=== PATIENT | female | born 1950 | race African-American/Black ===

== ENCOUNTER 2025-04-05 14:07 | Inpatient (IN) | payer MEDICARE, OTHER ==
[~2025-04-05] VITALS: Ht 154.9 cm; Wt 87.4 kg
[2025-04-05 14:28] VITALS: BP 115/57
[2025-04-05] MEDS ORDERED: ALUM-MAG HYDROX30 M1 PT (14:50)
[2025-04-05] MEDS ORDERED: ELIQUIS5 M2 PT (14:51)
[2025-04-05] MEDS ORDERED: BISA10S PR (14:51)
[2025-04-05] MEDS ORDERED: Fleet Enema132 ML PR (14:54)
[2025-04-05] MEDS ORDERED: Acetaminophen650 M1 PT (14:55)
[2025-04-05] MEDS ORDERED: [UNRECOGNIZED DRUG - OTHER] (14:58)
[2025-04-05] MEDS ORDERED: LEVE500 PT (14:58)
[2025-04-05] MEDS ORDERED: PRENATAL TABLE1 EAC2 PT (14:59)
[2025-04-05] MEDS ORDERED: HUMALOG KW100 UNIT/1 SC (15:03)
[2025-04-05] MEDS ORDERED: Metoclopramide HCL Soln 10 MG/10 ML UDC PT SCH (18:00)
[2025-04-05] MEDS ORDERED: Insulin Human Lispro 100 Units/ML 3ML Syringe SC SCH (18:00)
--- NOTE | 2025-04-05 18:46 | NUR ---
DAY SUMMARY DIRECT ADMIT THIS SHIFT, DAMION XFER'D TO BED, DENIES PAIN, A&OX3, ABLE TO ANSWER YES/NO QUESTIONS, SLOW TO RESPOND, REPOS Q2, NPO, WILL CONT TO MONITOR UNTIL REPORT GIVEN TO ONCOMING NURSE.
[2025-04-05] MEDS ORDERED: D5W-LR 1,000 ML IV SCH (19:00)
[2025-04-05 20:13] VITALS: BP 133/62
[2025-04-06 00:15] VITALS: BP 144/66
--- NOTE | 2025-04-06 05:54 | NUR ---
SHIFT SUMMARY: PT AOX3-4 ABLE TO SPEAK IN SMALL WORDS AND PHRASES. AWAKES TO VERBAL STIMULI. NO MEDS THROUGH G TUBE UNTIL REPLACEMENT PER DOCTOR ORDER. PT TOELRATING IV MEDICATIONS WELL. PT DENIES PAIN OR DISCOMFORT. SLEPT WELL THROUGH THE NIGHT TOLERATING TURNS. PT DID DIP DOWN TO A PULSE OF 40 3-4 TIMES AT NIGHT BUT NOTHING SUSTAINED ANY LONGER THAN A MINUTE. NO ACUTE OVERNIGHT EVENTS. PT IN BED RESTING, BED IN LOWEST POSITION, CALL LIGHT IN REACH. CONTINUING CARE.
[2025-04-06 06:11] VITALS: BP 146/63
[2025-04-06 06:17] LABS: BASOPHILS ABSOLUTE AUTO 0.02 K/mm3 (0.00-0.23); BASOPHILS PERCENT AUTO 0 % (0-2); EOSINOPHILS ABSOLUTE AUTO 0.13 K/mm3 (0.00-0.68); EOSINOPHILS PERCENT AUTO 2 % (0-6); Hematocrit 29.2 % (33.0-51.0); Hemoglobin 9.2 g/dL (11.5-16.0); IMMATURE GRAN ABSOLUTE AUTO 0.03 K/mm3 (0.00-0.10); IMMATURE GRAN PERCENT AUTO 0 % (0-1); LYMPHOCYTES ABSOLUTE AUTO 0.92 K/mm3 (0.84-5.20); LYMPHOCYTES PERCENT AUTO 13 % (21-46); MONOCYTES ABSOLUTE AUTO 0.74 K/mm3 (0.16-1.47); MONOCYTES PERCENT AUTO 10 % (4-13); Mean Corpuscular HGB Conc 31.5 g/dL (31.5-36.5); Mean Corpuscular Volume 80 fL (80-100); NEUTROPHILS ABSOLUTE AUTO 5.26 K/mm3 (1.96-9.15); NEUTROPHILS PERCENT AUTO 74 % (41-73); NRBC ABSOLUTE 0.00 K/mm3 (0.00-0.02); NRBC Auto 0.0 /100 WBC (0.0-0.2); Platelet Count 142 K/mm3 (150-400); RDW Coefficient Variation 19.8 % (11.7-14.2); RDW Standard Deviation 57.2 fL (35.1-46.3)
[2025-04-06 07:03] LABS: Alanine Aminotransfer (ALT/SGP 12 U/L (12-78); Albumin, Blood 2.1 g/dL (3.4-5.0); Albumin/Globulin Ratio 0.5 (0.8-1.8); Anion Gap 7 mmol/L (3-11); Aspartate Aminotrans (AST/SGOT 17 U/L (12-37); Bilirubin, Total 0.4 mg/dL (0.1-1.0); Blood Urea Nitrogen <1 mg/dL (8-24); CO2, Blood 29 mmol/L (21-32); Calcium, Blood 8.0 mg/dL (8.5-10.1); Chloride, Blood 109 mmol/L (98-108); Creatinine, Blood 0.33 mg/dL (0.40-1.00); Globulin, Blood 4.4 g/dL (2.2-4.0); Glucose, Blood 126 mg/dL (70-99); Potassium, Blood 2.9 mmol/L (3.5-5.5); Sodium, Blood 142 mmol/L (136-145); Total Protein, Blood 6.5 g/dL (6.4-8.2)
[2025-04-06 08:13] VITALS: BP 149/71
[2025-04-06 09:40] LABS: Magnesium, Blood 1.7 mg/dL (1.6-2.4); Phosphorus, Blood 1.7 mg/dL (2.5-4.9)
[2025-04-06] MEDS ORDERED: Mag Sulfate 1 GM/D5% 100ML 100 ML IV STA (12:11)
[2025-04-06] MEDS ORDERED: Potassium Phosphate Dibasic 20 MM in Dextrose 5% 500 ML IV SCH (13:00)
[2025-04-06 14:08] VITALS: BP 157/94
[2025-04-06] MEDS ORDERED: FERROUS SU300 MG/51 PT (16:02)
[2025-04-06] MEDS ORDERED: POTA20LUD PT (16:05)
[2025-04-06] MEDS ORDERED: OXYC5 PT (16:06)
[2025-04-06] MEDS ORDERED: Potassium Phosphate Dibasic 20 MM IV SCH (17:15)
[2025-04-06 19:42] VITALS: BP 161/89
[2025-04-06 19:50] LABS: Magnesium, Blood 1.9 mg/dL (1.6-2.4)
[2025-04-06 20:29] LABS: Albumin, Blood 2.2 g/dL (3.4-5.0); Anion Gap 7 mmol/L (3-11); Blood Urea Nitrogen <1 mg/dL (8-24); CO2, Blood 29 mmol/L (21-32); Calcium, Blood 8.0 mg/dL (8.5-10.1); Chloride, Blood 108 mmol/L (98-108); Creatinine, Blood 0.38 mg/dL (0.40-1.00); Glucose, Blood 132 mg/dL (70-99); Phosphorus, Blood 2.3 mg/dL (2.5-4.9); Potassium, Blood 3.4 mmol/L (3.5-5.5); Sodium, Blood 141 mmol/L (136-145)
[2025-04-07 00:45] VITALS: BP 141/59
--- NOTE | 2025-04-07 05:31 | NUR ---
SHIFT SUMMARY PT ALERT ORIENTED X 4 IS ABLE TO VERBALLY RESPOND TO YOU WHEN ASKED QUESTIONS BUT IT TAKES A LITTLE WHILE FOR HER TO RESPOND. SHE REQUIRES [facility] TO HELP WITH ADLS AND REPOSITIONING R/T HER PARAPLEGIA. SHES ONLY ABLE TO MOVE HER LEFT ARM A SMALL AMOUNT. ALL OTHER EXTREMITIES ARE FLACCID. SHE HAS A GTUBE INTACT TO HER UPPER ABDOMEN. REMAINS ON TYLENOL ORDERED FOR PAIN CONTROL. KEYES CATH INTACT DRAINING DARK YELLOW URINE. REMAINS ON D5LR AT 125. REMAINS ON TELEMETRY AT AFIB AT 57. NO C/O CHEST PAIN OR PRESSURE. FS DONE Q6HR WAS 125 AT 0000. NO COVERAGE WAS NEEDED. RESTING IN BED AT THIS TIME WITH CALL LIGHT IN REACH
[2025-04-07 05:45] VITALS: BP 127/95
[2025-04-07 06:17] LABS: BASOPHILS ABSOLUTE AUTO 0.01 K/mm3 (0.00-0.23); BASOPHILS PERCENT AUTO 0 % (0-2); EOSINOPHILS ABSOLUTE AUTO 0.18 K/mm3 (0.00-0.68); EOSINOPHILS PERCENT AUTO 3 % (0-6); Hematocrit 27.9 % (33.0-51.0); Hemoglobin 8.8 g/dL (11.5-16.0); IMMATURE GRAN ABSOLUTE AUTO 0.02 K/mm3 (0.00-0.10); IMMATURE GRAN PERCENT AUTO 0 % (0-1); LYMPHOCYTES ABSOLUTE AUTO 1.30 K/mm3 (0.84-5.20); LYMPHOCYTES PERCENT AUTO 22 % (21-46); MONOCYTES ABSOLUTE AUTO 0.82 K/mm3 (0.16-1.47); MONOCYTES PERCENT AUTO 14 % (4-13); Mean Corpuscular HGB Conc 31.5 g/dL (31.5-36.5); Mean Corpuscular Volume 81 fL (80-100); NEUTROPHILS ABSOLUTE AUTO 3.69 K/mm3 (1.96-9.15); NEUTROPHILS PERCENT AUTO 61 % (41-73); NRBC ABSOLUTE 0.00 K/mm3 (0.00-0.02); NRBC Auto 0.0 /100 WBC (0.0-0.2); Platelet Count 134 K/mm3 (150-400); RDW Coefficient Variation 20.0 % (11.7-14.2); RDW Standard Deviation 58.4 fL (35.1-46.3)
[2025-04-07 06:31] LABS: Albumin, Blood 2.0 g/dL (3.4-5.0); Anion Gap 3 mmol/L (3-11); Blood Urea Nitrogen 1 mg/dL (8-24); CO2, Blood 32 mmol/L (21-32); Calcium, Blood 8.3 mg/dL (8.5-10.1); Chloride, Blood 112 mmol/L (98-108); Creatinine, Blood 0.36 mg/dL (0.40-1.00); Glucose, Blood 125 mg/dL (70-99); Magnesium, Blood 1.9 mg/dL (1.6-2.4); Phosphorus, Blood 2.9 mg/dL (2.5-4.9); Potassium, Blood 3.1 mmol/L (3.5-5.5); Sodium, Blood 144 mmol/L (136-145)
[2025-04-07] MEDS ORDERED: Sodium Phosphate Mono/Dibasic 250 MG Tab PT ONE (07:00)
[2025-04-07] MEDS ORDERED: Potassium Chl 20MEQ/Water100ML 100 ML IV SCH (07:05)
[2025-04-07 08:10] VITALS: BP 151/73
[2025-04-07 16:48] VITALS: BP 158/73
--- NOTE | 2025-04-07 18:38 | NUR ---
SHIFT SUMMARY PATIENT ALERT. PATIENT UNABLE TO ANSWER ORIENTATION QUESTIONS ALTHOUGH IS ABLE TO ANSWER YES AND NO QUESTIONS. VSS. NO COMPLAINTS OF PAIN THIS SHIFT. TUBE FEEDING STARTED AT APPROX. 1500. TOLERATING WELL AT THIS TIME. CALL LIGHT WITHIN REACH AND FREQUENT ROUNDING PERFORMED TO ENSURE NEEDS ARE MET.
[2025-04-07 20:02] VITALS: BP 153/64
[2025-04-07 20:08] LABS: Magnesium, Blood 1.7 mg/dL (1.6-2.4)
[2025-04-07 20:19] LABS: Albumin, Blood 2.1 g/dL (3.4-5.0); Anion Gap 6 mmol/L (3-11); Blood Urea Nitrogen <1 mg/dL (8-24); CO2, Blood 29 mmol/L (21-32); Calcium, Blood 8.4 mg/dL (8.5-10.1); Chloride, Blood 110 mmol/L (98-108); Creatinine, Blood 0.32 mg/dL (0.40-1.00); Glucose, Blood 92 mg/dL (70-99); Phosphorus, Blood 2.7 mg/dL (2.5-4.9); Potassium, Blood 4.3 mmol/L (3.5-5.5); Sodium, Blood 141 mmol/L (136-145)
[2025-04-08] VITALS (9 sets, daily range): BP systolic 145–194; BP diastolic 66–94
[2025-04-08 07:17] LABS: BASOPHILS ABSOLUTE AUTO 0.02 K/mm3 (0.00-0.23); BASOPHILS PERCENT AUTO 0 % (0-2); EOSINOPHILS ABSOLUTE AUTO 0.09 K/mm3 (0.00-0.68); EOSINOPHILS PERCENT AUTO 1 % (0-6); Hematocrit 32.8 % (33.0-51.0); Hemoglobin 10.3 g/dL (11.5-16.0); IMMATURE GRAN ABSOLUTE AUTO 0.02 K/mm3 (0.00-0.10); IMMATURE GRAN PERCENT AUTO 0 % (0-1); LYMPHOCYTES ABSOLUTE AUTO 0.89 K/mm3 (0.84-5.20); LYMPHOCYTES PERCENT AUTO 14 % (21-46); MONOCYTES ABSOLUTE AUTO 0.59 K/mm3 (0.16-1.47); MONOCYTES PERCENT AUTO 9 % (4-13); Mean Corpuscular HGB Conc 31.4 g/dL (31.5-36.5); Mean Corpuscular Volume 80 fL (80-100); NEUTROPHILS ABSOLUTE AUTO 4.66 K/mm3 (1.96-9.15); NEUTROPHILS PERCENT AUTO 74 % (41-73); NRBC ABSOLUTE 0.00 K/mm3 (0.00-0.02); NRBC Auto 0.0 /100 WBC (0.0-0.2); Platelet Count 153 K/mm3 (150-400); RDW Coefficient Variation 20.3 % (11.7-14.2); RDW Standard Deviation 58.7 fL (35.1-46.3)
[2025-04-08 07:31] LABS: Anion Gap 7.0 mmol/L (3-11); Blood Urea Nitrogen 1.0 mg/dL (8-24); CO2, Blood 30.0 mmol/L (21-32); Calcium, Blood 8.6 mg/dL (8.5-10.1); Chloride, Blood 108.0 mmol/L (98-108); Creatinine, Blood 0.37 mg/dL (0.40-1.00); Glucose, Blood 114.0 mg/dL (70-99); Magnesium, Blood 1.8 mg/dL (1.6-2.4); Phosphorus, Blood 2.6 mg/dL (2.5-4.9); Potassium, Blood 3.4 mmol/L (3.5-5.5); Sodium, Blood 142.0 mmol/L (136-145)
--- NOTE | 2025-04-08 07:35 | NUR ---
SHIFT SUMMARY PT ALERT ORIENTED BUT IS SLOW TO RESPOND AND SPEAKS SOFTLY. REMAINS ON BEDREST. RECEIVED GLUCERNA AT 25 WITTH H2O 30ML Q4HR THROUGHOUT THE NIGHT. IT WAS INCREASED TO 35 THIS AM AT 0650. SHES TOLERATED THE FEEDINGS THROUGHOUT THE NIGHT. FS DONE Q6HR WAS 116 AND 122. REMAINS ON BEDREST KEYES CATH INTACT DRAINING DARK YELLOW URINE. REMAINS ON D5LR AT 125. SHES KEPT TURNED THROUGHOUT THE NIGHT. RESTING IN BED WITH CALL LIGHT IN REACH
[2025-04-08] MEDS ORDERED: NS 250 ML IV PRN (12:20)
[2025-04-08] MEDS ORDERED: Sodium Phosphate Mono/Dibasic 250 MG Tab PO SCH (12:30)
[2025-04-08] MEDS ORDERED: HydrALAZINE HCl 20 MG / ML 1ML Vial IV ONE (21:50)
[2025-04-08] MEDS ORDERED: LevETIRAcetam 100 MG/ML 5ML ORAL SYR PT SCH (22:00)
[2025-04-08 22:27] LABS: Anion Gap 6.0 mmol/L (3-11); Blood Urea Nitrogen 3.0 mg/dL (8-24); CO2, Blood 30.0 mmol/L (21-32); Calcium, Blood 8.7 mg/dL (8.5-10.1); Chloride, Blood 107.0 mmol/L (98-108); Creatinine, Blood 0.36 mg/dL (0.40-1.00); Glucose, Blood 114.0 mg/dL (70-99); Potassium, Blood 3.1 mmol/L (3.5-5.5); Sodium, Blood 140.0 mmol/L (136-145)
[2025-04-09 03:52] VITALS: BP 158/80
--- NOTE | 2025-04-09 06:03 | NUR ---
SUMMARY: PT AOX1, SOFT SPEECH, UNABLE TO FORM COHERENT SENTENCES. PT ASKED IF SHE WAS HAVING CHEST PAIN AND SHE NODDED YES. PROVIDER NOTIFIED, TROPS DRAWN, EKG DONE, BMP & BNP DRAWN, CXR DONE. HYDRALAZINE ORDERED FOR HYPERTENSION. CATTLE KNOCKER NOTIFIED THIS RN OF RUN OF VTACH. PROVIDER NOTIFIED AND K REPLACEMENT WAS ORDERED FOR K 3.1. TROPS NORMAL. CATTLE KNOCKER ALSO NOTIFIED THIS RN OF 6 SEC RVR RUN. PROVIDER NOTIFIED AND STATED HE IS NOT CONCERNED UNLESS IT IS LONGER THAN 15 SEC. PT RESTING, GTUBE PATENT, HAD LARGE LOOSE BM OVERNIGHT, REPO Q 2 HOURS. SOFT TOUCH CALL LIGHT WITHIN REACH.
[2025-04-09 06:12] LABS: BASOPHILS ABSOLUTE AUTO 0.02 K/mm3 (0.00-0.23); BASOPHILS PERCENT AUTO 0 % (0-2); EOSINOPHILS ABSOLUTE AUTO 0.01 K/mm3 (0.00-0.68); EOSINOPHILS PERCENT AUTO 0 % (0-6); Hematocrit 29.8 % (33.0-51.0); Hemoglobin 9.5 g/dL (11.5-16.0); IMMATURE GRAN ABSOLUTE AUTO 0.02 K/mm3 (0.00-0.10); IMMATURE GRAN PERCENT AUTO 0 % (0-1); LYMPHOCYTES ABSOLUTE AUTO 0.92 K/mm3 (0.84-5.20); LYMPHOCYTES PERCENT AUTO 9 % (21-46); MONOCYTES ABSOLUTE AUTO 0.66 K/mm3 (0.16-1.47); MONOCYTES PERCENT AUTO 7 % (4-13); Mean Corpuscular HGB Conc 31.9 g/dL (31.5-36.5); Mean Corpuscular Volume 79 fL (80-100); NEUTROPHILS ABSOLUTE AUTO 8.56 K/mm3 (1.96-9.15); NEUTROPHILS PERCENT AUTO 84 % (41-73); NRBC ABSOLUTE 0.00 K/mm3 (0.00-0.02); NRBC Auto 0.0 /100 WBC (0.0-0.2); Platelet Count 161 K/mm3 (150-400); RDW Coefficient Variation 20.2 % (11.7-14.2); RDW Standard Deviation 57.1 fL (35.1-46.3)
[2025-04-09 06:29] LABS: Albumin, Blood 2.2 g/dL (3.4-5.0); Anion Gap 6 mmol/L (3-11); Blood Urea Nitrogen 4 mg/dL (8-24); CO2, Blood 30 mmol/L (21-32); Calcium, Blood 8.3 mg/dL (8.5-10.1); Chloride, Blood 108 mmol/L (98-108); Creatinine, Blood 0.36 mg/dL (0.40-1.00); Glucose, Blood 117 mg/dL (70-99); Magnesium, Blood 1.8 mg/dL (1.6-2.4); Phosphorus, Blood 2.6 mg/dL (2.5-4.9); Potassium, Blood 3.4 mmol/L (3.5-5.5); Sodium, Blood 141 mmol/L (136-145)
[2025-04-09] MEDS ORDERED: Potassium Phos/Sodium Phos 250 MG PACK PT ONE (07:00)
[2025-04-09 07:52] VITALS: BP 176/79
[2025-04-09 11:11] VITALS: BP 171/87
[2025-04-09] MEDS ORDERED: DILT30 PT (11:30)
[2025-04-09] MEDS ORDERED: PHOS-NAK PT (11:55)
[2025-04-09] MEDS ORDERED: Metoclopramide HCL Soln 10 MG/10 ML UDC PO ONE (15:00)
[2025-04-09] MEDS ORDERED: Amoxicillin/Clavulanate K 600 MG/5 ML 5ML UDC PO ONE (16:00)
--- NOTE | 2025-04-09 17:06 | NUR ---
DISCHARGE PT DISCHARGED BACK TO SNF [facility] VIA GURNEY TRANSPORT. REPORT GIVEN TO FACILITY NURSE, ALL BELONGINGS SENT WITH PT.
== END 2025-04-09 16:39 | DRG 920 ==
LOC: MEDS 14:07 → ENPENDDIS 04-09 10:56 → MEDS 04-09 16:39
PROVIDERS: Internal Medicine; Student in an Organized Health Care Education/Training Program; ADMIT Internal Medicine
PROC: 0D20XUZ Change Feeding Device in Upper Intestinal Tract, External Approach (ICD-10-PCS; principal; 2025-04-06)
DX: T85.528A Displacement of other gastrointestinal prosthetic devices, implants and grafts, initial encounter (principal); G82.20 Paraplegia, unspecified; I48.20 Chronic atrial fibrillation, unspecified; K56.609 Unspecified intestinal obstruction, unspecified as to partial versus complete obstruction; K59.89 Other specified functional intestinal disorders; K59.00 Constipation, unspecified; E87.8 Other disorders of electrolyte and fluid balance, not elsewhere classified; I48.91 Unspecified atrial fibrillation; E11.9 Type 2 diabetes mellitus without complications; E87.6 Hypokalemia; E83.39 Other disorders of phosphorus metabolism; G40.909 Epilepsy, unspecified, not intractable, without status epilepticus; Z79.01 Long term (current) use of anticoagulants; Z79.4 Long term (current) use of insulin; Z79.899 Other long term (current) drug therapy; Y73.2 Prosthetic and other implants, materials and accessory gastroenterology and urology devices associated with adverse incidents
CPT/HCPCS: 36415; 71045; 80048; 80053; 80069; 82947; 83735; 83880; 84100; 84484; 85025; 93005; 93010; 96361; 96365; 96366; 96375; 96376; A9270; C1769; C1887; C1894; G0378; J0360; J1953; J3411; J3475; J3480; J7050; J7060; J7070; J7121; Q9967

== ENCOUNTER 2025-06-12 21:35 | Inpatient (IN) | payer MEDICARE, OTHER ==
[~2025-06-12] VITALS: Ht 172.7 cm; Wt 86.9 kg
[~2025-06-12 21:35] MED LIST: ALUM-MAG HYDROX30 M1 PT; Acetaminophen650 M1 PT; BISA10S PR; DILT30 PT; ELIQUIS5 M2 PT; FERROUS SU300 MG/51 PT; Fleet Enema132 ML PR; HUMALOG KW100 UNIT/1 SC; LEVE500 PT; OXYC5 PT; PHOS-NAK PT; POTA20LUD PT; PRENATAL TABLE1 EAC2 PT; [UNRECOGNIZED DRUG - OTHER]
[2025-06-12] MEDS ORDERED: CefTRIAXone Sodium 2,000 MG in NS 100 ML IV ONE (22:00)
[2025-06-12 22:06] LABS: BASOPHILS ABSOLUTE AUTO 0.05 K/mm3 (0.00-0.23); BASOPHILS PERCENT AUTO 0 % (0-2); EOSINOPHILS ABSOLUTE AUTO 0.14 K/mm3 (0.00-0.68); EOSINOPHILS PERCENT AUTO 1 % (0-6); Hematocrit 41.2 % (33.0-51.0); Hemoglobin 12.6 g/dL (11.5-16.0); IMMATURE GRAN ABSOLUTE AUTO 0.09 K/mm3 (0.00-0.10); IMMATURE GRAN PERCENT AUTO 1 % (0-1); LYMPHOCYTES ABSOLUTE AUTO 1.88 K/mm3 (0.84-5.20); LYMPHOCYTES PERCENT AUTO 14 % (21-46); MONOCYTES ABSOLUTE AUTO 0.78 K/mm3 (0.16-1.47); MONOCYTES PERCENT AUTO 6 % (4-13); Mean Corpuscular HGB Conc 30.6 g/dL (31.5-36.5); Mean Corpuscular Volume 83 fL (80-100); NEUTROPHILS ABSOLUTE AUTO 10.46 K/mm3 (1.96-9.15); NEUTROPHILS PERCENT AUTO 78 % (41-73); NRBC ABSOLUTE 0.00 K/mm3 (0.00-0.02); NRBC Auto 0.0 /100 WBC (0.0-0.2); Platelet Count 102 K/mm3 (150-400); RDW Coefficient Variation 18.1 % (11.7-14.2); RDW Standard Deviation 54.4 fL (35.1-46.3)
[2025-06-12 22:20] LABS: Alanine Aminotransfer (ALT/SGP 290.0 U/L (12-78); Albumin, Blood 2.8 g/dL (3.4-5.0); Albumin/Globulin Ratio 0.5 (0.8-1.8); Anion Gap 7.0 mmol/L (3-11); Aspartate Aminotrans (AST/SGOT 254.0 U/L (12-37); Bilirubin, Direct 0.1 mg/dL (0.0-0.3); Bilirubin, Indirect 0.2 mg/dL (0.1-0.7); Bilirubin, Total 0.3 mg/dL (0.1-1.0); Blood Urea Nitrogen 56.0 mg/dL (8-24); CO2, Blood 26.0 mmol/L (21-32); Calcium, Blood 9.5 mg/dL (8.5-10.1); Chloride, Blood 122.0 mmol/L (98-108); Creatinine, Blood 0.79 mg/dL (0.40-1.00); Globulin, Blood 5.1 g/dL (2.2-4.0); Glucose, Blood 157.0 mg/dL (70-99); Magnesium, Blood 2.1 mg/dL (1.6-2.4); Phosphorus, Blood 2.7 mg/dL (2.5-4.9); Potassium, Blood 4.2 mmol/L (3.5-5.5); Sodium, Blood 151.0 mmol/L (136-145); Total Protein, Blood 7.9 g/dL (6.4-8.2)
[2025-06-12 22:21] LABS: Prothrombin Time Results 13.3 Sec (9.7-11.5)
[2025-06-12 23:19] LABS: Source, Urine Foley catheter
[2025-06-12 23:42] LABS: Bilirubin, Urine Neg (Neg); Glucose Qualitative, Urine Neg (Neg); Ketones, Urine Neg (Neg); Leukocyte Esterase, Urine 2+ (Neg); Protein, Urine 3+ (Neg); Specific Gravity, Urine 1.020 (1.003-1.022); Urobilinogen, Urine NORM (Normal)
[2025-06-12 23:48] LABS: Color, Urine Yellow (P-Yellow)
[2025-06-12 23:50] LABS: White Blood Cells, Urine 25-50 /hpf (0-5)
[2025-06-12] MEDS ORDERED: Cefepime HCl 2,000 MG in NS 100 ML IV ONE (23:50)
[2025-06-12] MEDS ORDERED: MetroNIDAZOLE 500MG/NS 100 ml 100 ML IV ONE (23:50)
[2025-06-12 23:51] LABS: Red Blood Cells, Urine 25-50 /hpf (0-2)
[2025-06-12 23:54] LABS: Influenza A, PCR NEGATIVE (NEGATIVE); Influenza B, PCR NEGATIVE (NEGATIVE); Resp Syncytial Virus, PCR NEGATIVE (NEGATIVE); SARS-Cov-2 (COVID-19) PCR, MMC NEGATIVE (NEGATIVE)
[2025-06-13] VITALS (30 sets, daily range): BP systolic 88–116; BP diastolic 53–89
[2025-06-13] MEDS ORDERED: Ondansetron HCl 2 MG / ML 2ML Vial IV PRN (00:20)
[2025-06-13] MEDS ORDERED: FLU VACC TS2025(65UP)/MF59C/PF 45 MCG/0.5 ML SYRINGE IM SCH (00:25)
--- NOTE | 2025-06-13 01:05 | NUR ---
ASSUMED CARE GOT REPORT FROM JOEY RYAN IN ED. PATIENT TRANSFERED TO ICU 8 @0135. PATIENT AWAKE EYES OPEN, DOES NOT FOLLOW COMMANDS AND IS NONVERBAL DUE TO STROKE. PATIENT HR IN THE 90'S IN A FLUTTER AND SBP 110'S. PERIPHERAL IV IN LEFT HAND 20G WITH LR RUNNING. PATIENT HAS TEMP KEYES AND RECTAL TUBE IN PLACE. BOTH DRAINING TO GRAVITY. HAS SCARS ON COCCYX AREA AND LOWER BACK. HAS SURGICAL WOUND ON LEFT UPPER CHEST WITH SURGICAL GLUE. PATIENT UNABLE TO MOVE ANY EXTREMITIES. PATENT ON ROOM AIR. CALL LIGHT WITHIN REACH.
[2025-06-13 01:43] LABS: pH Blood Arterial 7.43 (7.35-7.45)
[2025-06-13 04:53] LABS: Campylobacter Sp Not Detected (NOT DETECT); E. Coli O157 Not Detected (NOT DETECT); Enteroaggregative E. coli-EAEC Not Detected (NOT DETECT); Enteropathogenic E. coli-EPEC Not Detected (NOT DETECT); Enterotoxigenic E. coli-ETEC Not Detected (NOT DETECT); Salmonella Sp Not Detected (NOT DETECT); Shiga Toxin-prod E. coli-STEC Not Detected (NOT DETECT); Shigella/Enteroin E. coli-EIEC Not Detected (NOT DETECT); Vibrio Sp Not Detected (NOT DETECT)
[2025-06-13 05:27] LABS: BASOPHILS ABSOLUTE AUTO 0.04 K/mm3 (0.00-0.23); BASOPHILS PERCENT AUTO 0 % (0-2); EOSINOPHILS ABSOLUTE AUTO 0.20 K/mm3 (0.00-0.68); EOSINOPHILS PERCENT AUTO 2 % (0-6); Hematocrit 38.5 % (33.0-51.0); Hemoglobin 11.8 g/dL (11.5-16.0); IMMATURE GRAN ABSOLUTE AUTO 0.08 K/mm3 (0.00-0.10); IMMATURE GRAN PERCENT AUTO 1 % (0-1); LYMPHOCYTES ABSOLUTE AUTO 2.35 K/mm3 (0.84-5.20); LYMPHOCYTES PERCENT AUTO 19 % (21-46); MONOCYTES ABSOLUTE AUTO 0.82 K/mm3 (0.16-1.47); MONOCYTES PERCENT AUTO 6 % (4-13); Mean Corpuscular HGB Conc 30.6 g/dL (31.5-36.5); Mean Corpuscular Volume 83 fL (80-100); NEUTROPHILS ABSOLUTE AUTO 9.24 K/mm3 (1.96-9.15); NEUTROPHILS PERCENT AUTO 73 % (41-73); NRBC ABSOLUTE 0.00 K/mm3 (0.00-0.02); NRBC Auto 0.0 /100 WBC (0.0-0.2); Platelet Count 71 K/mm3 (150-400); RDW Coefficient Variation 18.4 % (11.7-14.2); RDW Standard Deviation 54.8 fL (35.1-46.3)
[2025-06-13] MEDS ORDERED: Insulin Regular 100 UNIT/ML 10ML Vial SC SCH ×2 (06:00→08:00)
--- NOTE | 2025-06-13 06:08 | NUR ---
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 PATIENT ABLE TO OPEN EYES TO NAME AND SOMETIMES WILL NOD HEAD YES OR NO. CAREGIVER CALLED FROM [facility] TO CHECK ON PATIENT AND DAUGHTER LIVES OUT OF TOWN, PATIENT'S TEMP HAS BEEN 100.0 AT THE HIGHEST FOR MY SHIFT. HR IN THE 90-100'S AND SBP 90-110'S. PATIENT ON ROOMAIR SATTING 99%. PATIENT HAS G TUBE AND IT HAS BECOME DISLODGED PER MD NOTE. PATIENT HAS TEMP KEYES AND RECTAL TUBE DRAINING TO GRAVITY. POWERGLIDE IN RIGHT UPPER ARM AND PERIPHERAL LEFT HAND. LR RUNNING @125MLS/HR. CALL LIGHT WITHIN REACH.
[2025-06-13 06:33] LABS: Magnesium, Blood 2.1 mg/dL (1.6-2.4)
[2025-06-13 06:38] LABS: Alanine Aminotransfer (ALT/SGP 247.0 U/L (12-78); Albumin, Blood 2.5 g/dL (3.4-5.0); Albumin/Globulin Ratio 0.5 (0.8-1.8); Anion Gap 7.0 mmol/L (3-11); Aspartate Aminotrans (AST/SGOT 176.0 U/L (12-37); Bilirubin, Total 0.4 mg/dL (0.1-1.0); Blood Urea Nitrogen 54.0 mg/dL (8-24); CO2, Blood 28.0 mmol/L (21-32); Calcium, Blood 9.5 mg/dL (8.5-10.1); Chloride, Blood 122.0 mmol/L (98-108); Creatinine, Blood 0.68 mg/dL (0.40-1.00); Globulin, Blood 5.0 g/dL (2.2-4.0); Glucose, Blood 119.0 mg/dL (70-99); Potassium, Blood 3.9 mmol/L (3.5-5.5); Sodium, Blood 153.0 mmol/L (136-145); Total Protein, Blood 7.5 g/dL (6.4-8.2)
[2025-06-13] MEDS ORDERED: MetroNIDAZOLE 500MG/NS 100 ml 100 ML IV SCH (08:00)
[2025-06-13] MEDS ORDERED: Cefepime HCl 2,000 MG in NS 100 ML IV SCH (08:00)
[2025-06-13] MEDS ORDERED: NS 250 ML IV PRN (08:05)
[2025-06-13] MEDS ORDERED: NS 500 ML IV ONE (08:06)
[2025-06-13] MEDS ORDERED: Lactobacil 2-S.Thermo-Bifido 1 1 Cap PO SCH (09:00)
[2025-06-13] MEDS ORDERED: Vancomycin (Pharmacy Consult) IV SCH (11:00)
[2025-06-13 11:45] LABS: Anion Gap 5.0 mmol/L (3-11); Blood Urea Nitrogen 45.0 mg/dL (8-24); CO2, Blood 28.0 mmol/L (21-32); Calcium, Blood 8.8 mg/dL (8.5-10.1); Chloride, Blood 121.0 mmol/L (98-108); Creatinine, Blood 0.67 mg/dL (0.40-1.00); Glucose, Blood 164.0 mg/dL (70-99); Potassium, Blood 3.8 mmol/L (3.5-5.5); Sodium, Blood 150.0 mmol/L (136-145)
[2025-06-13 16:50] LABS: Anion Gap 4.0 mmol/L (3-11); Blood Urea Nitrogen 41.0 mg/dL (8-24); CO2, Blood 29.0 mmol/L (21-32); Calcium, Blood 8.7 mg/dL (8.5-10.1); Chloride, Blood 121.0 mmol/L (98-108); Creatinine, Blood 0.67 mg/dL (0.40-1.00); Glucose, Blood 142.0 mg/dL (70-99); Potassium, Blood 3.7 mmol/L (3.5-5.5); Sodium, Blood 150.0 mmol/L (136-145)
[2025-06-14] VITALS (66 sets, daily range): BP systolic 86–122; BP diastolic 49–94
[2025-06-14] MEDS ORDERED: Insulin Regular 100 UNIT/ML 10ML Vial SC SCH
[2025-06-14 04:18] LABS: BASOPHILS ABSOLUTE AUTO 0.04 K/mm3 (0.00-0.23); BASOPHILS PERCENT AUTO 0 % (0-2); EOSINOPHILS ABSOLUTE AUTO 0.37 K/mm3 (0.00-0.68); EOSINOPHILS PERCENT AUTO 4 % (0-6); Hematocrit 34.2 % (33.0-51.0); Hemoglobin 10.3 g/dL (11.5-16.0); IMMATURE GRAN ABSOLUTE AUTO 0.05 K/mm3 (0.00-0.10); IMMATURE GRAN PERCENT AUTO 1 % (0-1); LYMPHOCYTES ABSOLUTE AUTO 1.15 K/mm3 (0.84-5.20); LYMPHOCYTES PERCENT AUTO 13 % (21-46); MONOCYTES ABSOLUTE AUTO 0.51 K/mm3 (0.16-1.47); MONOCYTES PERCENT AUTO 6 % (4-13); Mean Corpuscular HGB Conc 30.1 g/dL (31.5-36.5); Mean Corpuscular Volume 85 fL (80-100); NEUTROPHILS ABSOLUTE AUTO 6.92 K/mm3 (1.96-9.15); NEUTROPHILS PERCENT AUTO 77 % (41-73); NRBC ABSOLUTE 0.00 K/mm3 (0.00-0.02); NRBC Auto 0.0 /100 WBC (0.0-0.2); Platelet Count 75 K/mm3 (150-400); RDW Coefficient Variation 17.6 % (11.7-14.2); RDW Standard Deviation 54.5 fL (35.1-46.3)
[2025-06-14 04:32] LABS: Anion Gap 7.0 mmol/L (3-11); Blood Urea Nitrogen 36.0 mg/dL (8-24); CO2, Blood 26.0 mmol/L (21-32); Calcium, Blood 8.9 mg/dL (8.5-10.1); Chloride, Blood 124.0 mmol/L (98-108); Creatinine, Blood 0.62 mg/dL (0.40-1.00); Glucose, Blood 95.0 mg/dL (70-99); Magnesium, Blood 1.9 mg/dL (1.6-2.4); Phosphorus, Blood 2.3 mg/dL (2.5-4.9); Potassium, Blood 3.8 mmol/L (3.5-5.5); Sodium, Blood 153.0 mmol/L (136-145)
[2025-06-14] MEDS ORDERED: Potassium Phosphate Dibasic 30 MM in Dextrose 5% 500 ML IV ONE (05:30)
--- NOTE | 2025-06-14 06:50 | NUR ---
SHIFT SUMMARY: NO ACUTE CHANGES T/O SHIFT. PT SLEPT, APPEARED COMFORTABLE. PT REMAINS RESPONSIVE TO NAME, ABLE TO NOD OR SHAKE HER HEAD TO ANSWER SIMPLE "YES" OR "NO" QUESTIONS. ATTEMPTS TO MOUTH WORDS AND ONLY MAKES SLIGHT MOVEMENTS TO LUE AND BILAT LE. 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 PT DENIED PAIN. SBP STABLE, SOFT. MAP>65. HR AFIB. PT REMAINS ON RA. SATS >95%, BREATHING EVEN AND UNLABORED. PT HAS G-TUBE TO LUQ, CLAMPED AT THIS TIME-USED FOR MEDS ONLY. ABD SOFT, BT ACTIVE X4. TEMP KEYES REMAINS IN PLACE, PATENT, DRAINING TO GRAVITY. POWERGLIDE IN GUALBERTO, INFUSING D5W AND POTASSIUM PHOSPHATE AT THIS TIME. CARE CONTINUES. THIS RN TO REPORT TO ONCOMING RN.
--- NOTE | 2025-06-14 10:59 | NUR ---
PT WAS MOVED TO ICU 14 JUST BEFORE 0900, PT HAD BEEN ABLE TO COMMUNICATE WITH STAFF BY HEAD NODS AND SHAKES, SOME SMALL NOISES. ON THE MOVE PT BEGAN ALARMING FOR EXTREME KATRIN, PT ASKED IF SHE WERE OKAY, WITH INITIAL RESPONSE. THEN PATIENT BECAME LESS RESPONSIVE AND BEGAN VOMITING OUT HER MOUTH, PT WAS TURNED TO HER RIGHT SIDE AND YANKAUER SUCTION USED. HEART RATE RETURNED TO 80'S-90S AND PT NODDING THAT SHE WAS IMPROVED. TO BEDSIDE WITH EVALUATION COMPLETED. PT CLEANED AND CHANGED. ANTIEMETIC GIVEN.
--- NOTE | 2025-06-14 11:24 | NUR ---
Upon receiving a request for a spiritual care visit, I visited the patient. She is mostly nonverbal except for one or so word replies. She states that she is hold up and that it is a rough journey. She is grateful for family and she welcomes prayer. I gladly supply prayer and the patient responded well to it and mouthed, "thank you," at the conclusion of the prayer. I will continue to remain available to patient and family.
[2025-06-14] MEDS ORDERED: TPN Consult Notification XX ONE (12:40)
[2025-06-14 12:45] LABS: Anion Gap 7.0 mmol/L (3-11); Blood Urea Nitrogen 29.0 mg/dL (8-24); CO2, Blood 26.0 mmol/L (21-32); Calcium, Blood 8.6 mg/dL (8.5-10.1); Chloride, Blood 119.0 mmol/L (98-108); Creatinine, Blood 0.55 mg/dL (0.40-1.00); Glucose, Blood 117.0 mg/dL (70-99); Potassium, Blood 4.0 mmol/L (3.5-5.5); Sodium, Blood 148.0 mmol/L (136-145)
--- NOTE | 2025-06-14 13:20 | NUR ---
SPOKE WITH DIANA, PT'S DIL. SHE STATES SHE IS STRUGGLING TO HELP HER THE PATIENT'S SON ACCEPT THAT PT'S HEALTH OUTCOMES ARE LIKELY GOING TO BE POOR. SHE STATES THE PATIENT DOESN'T COMMUNICATE MUCH WHEN SHE ISN'T FEELING GOOD, BUT HASN'T PROPERLY ADRESSED WISHES FOR END OF LIFE CARE WITH FAMILY AT THIS TIME. DIANA STATES SHE BELIEVES PT IS HOLDING ON FOR HER SON, STATING, "THEY ONLY HAVE EACH OTHER" AND BECAME TEARFUL. PLAN TO DISCUSS THIS FURTHER TOMORROW WHEN FAMILY IS ABLE TO ARRIVE IN PERSON.
[2025-06-14 17:03] LABS: Anion Gap 7.0 mmol/L (3-11); Blood Urea Nitrogen 26.0 mg/dL (8-24); CO2, Blood 28.0 mmol/L (21-32); Calcium, Blood 8.5 mg/dL (8.5-10.1); Chloride, Blood 117.0 mmol/L (98-108); Creatinine, Blood 0.56 mg/dL (0.40-1.00); Glucose, Blood 111.0 mg/dL (70-99); Potassium, Blood 4.5 mmol/L (3.5-5.5); Sodium, Blood 147.0 mmol/L (136-145)
--- NOTE | 2025-06-14 17:17 | NUR ---
ATTEMPTS TO GET ADDITIONAL IV PLACEMENT FOR PATIENT, SHE IS TO RECEIVE ALL HER ANTIBIOTICS, HER PPN, AND FLUIDS. VERY DIFFICULT LINE TO PLACE.
[2025-06-14] MEDS ORDERED: FentaNYL Citrate 50 MCG/ML 2 ML Injection IV PRN (19:45)
[2025-06-14] MEDS ORDERED: LevETIRAcetam 100 MG/ML 5ML ORAL SYR PT SCH (21:00)
--- NOTE | 2025-06-14 21:13 | NUR ---
ASSUMPTION OF CARE NOTE: ASSUMED CARE OF PT AT 1900 PT IS SUPINE IN BED AND WHEN ASKED IF THE PT IS IN PAIN THE PT NODS HER STOMACH YES TO HER STOMACH HURTING. HOSPITALIST CALLED AT 194 AND FENTANYL Q4 25-50MCG PRN ORDERED. PAIN MED GIVEN AND PT FEELS BETTER. PT HAS PATENT GUALBERTO PG WITH PPN INFUSING AT 96ML/HR. PATENT TEMP KEYES DRAINING YELLOW URINE TO GRAVITY. SBP'S 100-110'S AND HR 60-70'S. PT CURRENTLY ON 3L NC FOR BIBI AND SPO2 > 96%.PT REPOSITIONED TO R SIDE. Q4 100ML FLUSH OF STERILE WATER GIVEN AT 1999. PT NOW ASLEEP W/CALL LIGHT IN REACH AND BED LOW AND LOCKED FOR SAFETY.
[2025-06-14 22:41] LABS: Vancomycin, Trough 31.6 ug/mL (5.0-10.0)
[2025-06-14 22:48] LABS: pH Blood Venous 7.27 (7.34-7.37)
[2025-06-14 22:49] LABS: Magnesium, Blood 1.7 mg/dL (1.6-2.4); Potassium, Blood 4.2 mmol/L (3.5-5.5); Sodium, Blood 146.0 mmol/L (136-145); Thyroid Stimulating Hormone 2.96 uIU/mL (0.360-4.800)
[2025-06-14] MEDS ORDERED: Magnesium Sulf 2 GM/Water 50ML 50 ML IV ONE (22:55)
[2025-06-15] VITALS (92 sets, daily range): BP systolic 80–137; BP diastolic 48–92
[2025-06-15 00:08] LABS: Anion Gap 5.0 mmol/L (3-11); Blood Urea Nitrogen 24.0 mg/dL (8-24); CO2, Blood 26.0 mmol/L (21-32); Calcium, Blood 8.6 mg/dL (8.5-10.1); Chloride, Blood 118.0 mmol/L (98-108); Creatinine, Blood 0.53 mg/dL (0.40-1.00); Glucose, Blood 122.0 mg/dL (70-99); Phosphorus, Blood 3.0 mg/dL (2.5-4.9); Potassium, Blood 4.0 mmol/L (3.5-5.5); Sodium, Blood 145.0 mmol/L (136-145)
--- NOTE | 2025-06-15 00:16 | NUR ---
UPDATE: PT MORE LETHARGIC, HR DROPPING INTO THE 40'S WITH PAUSES. MAP <65. CALL PLACED TO HOSPITALIST JUNE WITH ORDERS FOR LABS AND TO INITIATE LEVOPHED. JUNE THEN SPOKE WITH DR. JENKINS WHO CAME TO BEDSIDE TO EVAULATE PT AND PLACE A CENTRAL LINE D/T LEVOPHED REQUIREMENTS AND LIMITED IV ACCESS. CENTRAL LINE PLACED TO LIJ WITH NO COMPLICATIONS. PT EDUCATED ON NEED FOR CENTRAL LINE. CALL PLACED TO PT'S DIANA PUGH TO OBTAIN VERBAL CONSENT FOR INSERTION OF CENTRAL LINE D/T PT BEING NON-VERBAL. DIANA AGREED. CHEST X-RAY DONE AND DR. JENKINS GAVE OKAY TO USE CENTRAL LINE. LEVOPHED AT 2 MCG/MIN TO MAINTAIN MAP >65. PT MORE ALERT AND NODDING HEAD YES/NO TO QUESTIONS. PT COCCYX NOW HAS OPEN WOUND OVER PREVIOUS SCARRING. DR. JENKINS MADE AWARE, PHOTOS TAKEN AND PLACED IN CHART AND MEPILEX APPLIED.
[2025-06-15 03:36] LABS: pH Blood Venous 7.30 (7.34-7.37)
[2025-06-15 03:39] LABS: BASOPHILS ABSOLUTE AUTO 0.02 K/mm3 (0.00-0.23); BASOPHILS PERCENT AUTO 0 % (0-2); EOSINOPHILS ABSOLUTE AUTO 0.29 K/mm3 (0.00-0.68); EOSINOPHILS PERCENT AUTO 3 % (0-6); Hematocrit 31.0 % (33.0-51.0); Hemoglobin 9.4 g/dL (11.5-16.0); IMMATURE GRAN ABSOLUTE AUTO 0.04 K/mm3 (0.00-0.10); IMMATURE GRAN PERCENT AUTO 0 % (0-1); LYMPHOCYTES ABSOLUTE AUTO 1.02 K/mm3 (0.84-5.20); LYMPHOCYTES PERCENT AUTO 11 % (21-46); MONOCYTES ABSOLUTE AUTO 0.59 K/mm3 (0.16-1.47); MONOCYTES PERCENT AUTO 6 % (4-13); Mean Corpuscular HGB Conc 30.3 g/dL (31.5-36.5); Mean Corpuscular Volume 85 fL (80-100); NEUTROPHILS ABSOLUTE AUTO 7.20 K/mm3 (1.96-9.15); NEUTROPHILS PERCENT AUTO 79 % (41-73); NRBC ABSOLUTE 0.00 K/mm3 (0.00-0.02); NRBC Auto 0.0 /100 WBC (0.0-0.2); Platelet Count 70 K/mm3 (150-400); RDW Coefficient Variation 17.1 % (11.7-14.2); RDW Standard Deviation 53.3 fL (35.1-46.3)
[2025-06-15 04:02] LABS: Alanine Aminotransfer (ALT/SGP 104 U/L (12-78); Albumin, Blood 2.1 g/dL (3.4-5.0); Albumin/Globulin Ratio 0.5 (0.8-1.8); Anion Gap 6 mmol/L (3-11); Aspartate Aminotrans (AST/SGOT 42 U/L (12-37); Bilirubin, Total 0.3 mg/dL (0.1-1.0); Blood Urea Nitrogen 22 mg/dL (8-24); CO2, Blood 25 mmol/L (21-32); Calcium, Blood 8.2 mg/dL (8.5-10.1); Chloride, Blood 117 mmol/L (98-108); Creatinine, Blood 0.52 mg/dL (0.40-1.00); Globulin, Blood 4.0 g/dL (2.2-4.0); Glucose, Blood 151 mg/dL (70-99); Magnesium, Blood 2.4 mg/dL (1.6-2.4); Phosphorus, Blood 2.7 mg/dL (2.5-4.9); Potassium, Blood 4.0 mmol/L (3.5-5.5); Sodium, Blood 144 mmol/L (136-145); Total Protein, Blood 6.1 g/dL (6.4-8.2); Triglycerides 101 mg/dL (30-160)
[2025-06-15 04:32] LABS: KEPPRA (LEVETIRACETAM) 37.6 ug/mL (10.0-40.0)
--- NOTE | 2025-06-15 05:35 | NUR ---
SHIFT SUMM: PT IS NOW ON BIPAP AND MAINTAINS SPO2 >96%.PT CURRENTLY HAD DOPAMINE INFUSING (SEE FLOWSHEET FOR TITRATIONS). PPN CURRENTLY INFUSING AT 96ML/HR. PATENT LIJ AND PATENT GUALBERTO PG. PATENT TEMP KEYES DRAINING TO GRAVITY.SBP'S 90'S-100'S AND HR 40-60'S (EKG COMPLETE). MEPILEX IN PLACE TO PRESSURE WOUND ON COCCYX AND Q2 TURNS FOR PREVENTION OF FURTHER SKIN BREAK DOWN. Q4 100 ML STERILE WATER FLUSHES DONE THIS SHIFT AND Q4 BS CHECKS WNL AND NCI. RECTAL TUBE REMAINS PATENT AND PT HAS ONE INCONT STOOL THIS SHIFT. PT ORIENTED TO SELF AND ABLE TO NOD YES AND NO TO QUESTIONS BUT UNSURE HOW MUCH PT UNDERSTANDS WITH CARE. PT HAS BED LOW AND LOCKED FOR SAFETY AND WAS MEDICATED W/PAIN MEDS PER EMAR.
[2025-06-15] MEDS ORDERED: FAMO20 PT (06:32)
[2025-06-15 08:51] LABS: Anion Gap 7.0 mmol/L (3-11); Blood Urea Nitrogen 23.0 mg/dL (8-24); CO2, Blood 26.0 mmol/L (21-32); Calcium, Blood 8.3 mg/dL (8.5-10.1); Chloride, Blood 115.0 mmol/L (98-108); Creatinine, Blood 0.48 mg/dL (0.40-1.00); Glucose, Blood 120.0 mg/dL (70-99); Potassium, Blood 4.1 mmol/L (3.5-5.5); Sodium, Blood 144.0 mmol/L (136-145)
[2025-06-15] MEDS ORDERED: Metoclopramide HCl 5MG / ML 2ML Vial IV PRN (08:55)
--- NOTE | 2025-06-15 12:54 | NUR ---
CASE CONFERENCE: MET WITH PT'S SON AND DAUGHTER IN [place] AFTER THEY MET WITH DR. BACA AT PT'S BEDSIDE. WE REVIEWED PT'S CHART TOGETHER, AND THEY FILLED IN GAPS REGARDING PT'S HISTORY. AT THIS TIME, THEY WISH TO CONTINUE UPHOLDING PT'S PREVIOUS DESIRE TO REMAIN A FULL CODE. HOWEVER, THEY VERBALIZE UNDERSTANDING REGARDING HER OVERALL GENERAL DECLINE. WE DID DISCUSS HOSPICE, AND FAMILY STATE FEELING IT'S TOO SOON, BUT GAVE APPRECIATION FOR THE CONVERSATION AND REQUEST WE TALK AGAIN TOMORROW AFTER THEY HAVE HAD TIME TO REFLECT. THE PATIENT IS CURRENTLY UNABLE TO ANSWER YES OR NO QUESTIONS, SHAKING HEAD, "YES" TO ALL QUESTIONS AT THIS TIME. THIS IS NOT HER BASELINE. PLAN TO SEE THE PATIENT AND FAMILY AGAIN TOMORROW.
--- NOTE | 2025-06-15 13:51 | NUR ---
ASSUMED CARE AT 0700 PT LAYING IN BED SLEEPING AT SHIFT CHANGE WITH BIPAP MASK ON. NEW ORDERS FOR STAT CT AT SHIFT CHANGE. PT PLACED ON 4L NC AND WAS BEING TRANSPORTED TO CT WHEN PT HAD LARGE EPISODE OF CLEAR EMISIS IN ROUTE. PT BROUGHT BACK TO ICU AND CT DELAYED; PRN ZOFRAN GIVEN AND LATER REGLAN GIVEN FOR NAUSEA. SHE IS NON-VERBAL AT BASELINE BUT ANSWERS QUESTIONS WITH HEAD NODS; CHALLENGING TO ASSESS ORIENATION BECAUSE PT NODS YES TO MOSTLY ALL QUESTIONS. TOLERATING 4L NC WELL; OCCATIONAL COUGH NOTED. AFEBRILE. HR 60-80'S WITH DOPAMINE INFUSING AT 2MCG/KG/MIN. SBP 90-100. G-TUBE CLAMPED. KEYES IN PLACE AND DRAINING TO GRAVITY. CENTRAL LINE TO LIJ PATENT WITH TPN INFUSING AT 96ML/HR. SEE SHIFT ASSESSMENT FOR FULL ASSESSMENT.
[2025-06-15 15:01] LABS: Vancomycin, Random 20.9 ug/mL
[2025-06-15 16:02] LABS: Anion Gap 6.0 mmol/L (3-11); Blood Urea Nitrogen 22.0 mg/dL (8-24); CO2, Blood 26.0 mmol/L (21-32); Calcium, Blood 8.7 mg/dL (8.5-10.1); Chloride, Blood 115.0 mmol/L (98-108); Creatinine, Blood 0.48 mg/dL (0.40-1.00); Glucose, Blood 140.0 mg/dL (70-99); Potassium, Blood 4.1 mmol/L (3.5-5.5); Sodium, Blood 143.0 mmol/L (136-145)
--- NOTE | 2025-06-15 17:38 | NUR ---
ASSUMED CARE PATIENT IS SITTING UP W/ HOB 30, WITH EYES OPEN AND RESPONDS TO VERBAL STIMULI WITH HEAD NOD AND SMILE. SHE IS CURRENTLY ON DOPAMINE 2MCG/KG/MIN, TPN INFUSION, AND NS TKO. SHE IS ON 1L O2 VIA NC WITH SPO2 >96%. HER HR IS 50-70S, SYSTOLIC BP >80, MAP >65. HER KEYES IS PATENT AND DRAINING CLEAR YELLOW URINE TO GRAVITY. CHRONIC RECTAL TUBE IN PLACE WITH DARK BROWN STOOL VISIBLE IN DRAINAGE BAG. BED IN LOWEST POSITION. CALL LIGHT IN REACH.
--- NOTE | 2025-06-15 18:46 | NUR ---
SHIFT SUMMARY ASSESSMENT UNCHANGED FROM ASSUMPTION OF CARE NOTE AT 1700. MIDLINE D/C DUE TO IT NOT BEING PATENT. SPOKE WITH DR. BACA ABOUT STARTING ANTICOAGULANT. ORDER PLACED FOR HEPARIN. BED IN LOWEST POSITION. CALL LIGHT IN REACH.
[2025-06-15 18:57] LABS: Anti-Xa UFH, PHA Monitoring <0.10 IU/mL; Prothrombin Time Results 12.7 Sec (9.7-11.5)
[2025-06-15] MEDS ORDERED: Heparin Sodium,Porcine/0.5 NS 500 ML IV SCH (19:10)
[2025-06-16] VITALS (93 sets, daily range): BP systolic 80–119; BP diastolic 45–71
--- NOTE | 2025-06-16 00:57 | NUR ---
ASSUMED CARE THIS RN ASSUMED CARE OF PT @ 1900. PT RESTING BED, SLEEPING BUT ARROUSABLE WITH VERBAL STIMULI. PT ON 1L/NC AND TOLERATING WELL. VITAL SIGNS STABLE, DOPAMINE INFUSING @ 2MCG/KG. PT HAS KEYES CATHETER AND RECTAL TUBE IN PLACE, BOTH ARE PATENT AND DRAINING TO GRAVITY. NO IMMEDIATE NEEDS OR CONCERNS AT THIS TIME. CALL LIGHT WITHIN REACH AND BED IN THE LOWEST POSITION.
[2025-06-16 03:35] LABS: BASOPHILS ABSOLUTE AUTO 0.02 K/mm3 (0.00-0.23); BASOPHILS PERCENT AUTO 0 % (0-2); EOSINOPHILS ABSOLUTE AUTO 0.26 K/mm3 (0.00-0.68); EOSINOPHILS PERCENT AUTO 3 % (0-6); Hematocrit 30.4 % (33.0-51.0); Hemoglobin 9.4 g/dL (11.5-16.0); IMMATURE GRAN ABSOLUTE AUTO 0.04 K/mm3 (0.00-0.10); IMMATURE GRAN PERCENT AUTO 0 % (0-1); LYMPHOCYTES ABSOLUTE AUTO 0.97 K/mm3 (0.84-5.20); LYMPHOCYTES PERCENT AUTO 10 % (21-46); MONOCYTES ABSOLUTE AUTO 0.57 K/mm3 (0.16-1.47); MONOCYTES PERCENT AUTO 6 % (4-13); Mean Corpuscular HGB Conc 30.9 g/dL (31.5-36.5); Mean Corpuscular Volume 84 fL (80-100); NEUTROPHILS ABSOLUTE AUTO 7.45 K/mm3 (1.96-9.15); NEUTROPHILS PERCENT AUTO 80 % (41-73); NRBC ABSOLUTE 0.00 K/mm3 (0.00-0.02); NRBC Auto 0.0 /100 WBC (0.0-0.2); Platelet Count 66 K/mm3 (150-400); RDW Coefficient Variation 16.8 % (11.7-14.2); RDW Standard Deviation 51.8 fL (35.1-46.3)
[2025-06-16 03:54] LABS: Alanine Aminotransfer (ALT/SGP 75.0 U/L (12-78); Albumin, Blood 2.1 g/dL (3.4-5.0); Albumin/Globulin Ratio 0.5 (0.8-1.8); Anion Gap 8.0 mmol/L (3-11); Aspartate Aminotrans (AST/SGOT 28.0 U/L (12-37); Bilirubin, Total 0.3 mg/dL (0.1-1.0); Blood Urea Nitrogen 21.0 mg/dL (8-24); CO2, Blood 25.0 mmol/L (21-32); Calcium, Blood 8.3 mg/dL (8.5-10.1); Chloride, Blood 112.0 mmol/L (98-108); Creatinine, Blood 0.41 mg/dL (0.40-1.00); Globulin, Blood 4.0 g/dL (2.2-4.0); Glucose, Blood 169.0 mg/dL (70-99); Magnesium, Blood 1.9 mg/dL (1.6-2.4); Phosphorus, Blood 2.5 mg/dL (2.5-4.9); Potassium, Blood 4.2 mmol/L (3.5-5.5); Sodium, Blood 141.0 mmol/L (136-145); Total Protein, Blood 6.1 g/dL (6.4-8.2)
[2025-06-16] MEDS ORDERED: Clarify Drug Order XX ONE (03:55)
--- NOTE | 2025-06-16 05:35 | NUR ---
SHIFT SUMMARY PT SLEEPING T/O THE NIGHT WITH PERIODS OF AWAKING, WHEN AWAKE PT IS ALERT AND NODS HEAD YES TO ALL QUESTIONS, IS NOT ABLE TO MAKE NEEDS KNOWN AND DOES NOT APPROPRIATLEY FOLLOW COMMANDS. PT HAS BEEN ON 1L/NC T/O THE NIGHT AND TOLERATING WELL WITH SPO2 >95%. AFIB RHYTHM, HEPARIN INFUSING @ 12 MCG/KG. HR IN THE 50'S-60'S, MAP >60 FOR MOST OF THE NIGHT WITH BRIEF PERIODS OF LOW MAPS BUT PT RECOVERS QUICKLY WITHOUT FURTHER INTERVENTION, DOPAMINE INFUSING @ 3MCG/KG. PPN INFUSING @ 96ML/HR AND PT TOLERATING WELL, G-TUBE IS CLAMPED, SIGHT WNL. RECTAL TUBE AND KEYES IN PLACE, PATENT, AND DRAINING TO GRAVITY. COCCYX WOUND IS COVERED WITH MEPILEX. [facility] BED BATH AND LINEN CHANGE PERFORMED TONIGHT NO IMMEDIATE CONCERNS OR NEEDS AT THIS TIME. CALL LIGHT WITHIN REACH, BED IN LOWEST POSITION. WILL REPORT TO ONCOMING NURSE.
--- NOTE | 2025-06-16 09:39 | NUR ---
ASSUMPTION OF CARE RECEIVED REPORT FROM [facility] NURSE. PT IS AWAKE, NONVERBAL AT BASELINE, DOES NOT FOLLOW COMMANDS, AND NODS HEAD YES TO ALL ANSWERS. PT ON RA, SPO2>94%. PT HAS EXPIRATORY RAILS IN BLL. PT HAS G TUBE IN LLQ, ON BOWEL REST. PT HAS CHRONIC RECTAL TUBE IN PLACE, DRAINING BROWN LIQUID STOOL. PT HAS KEYES CATH IN PLACE PATENT AND DRAINING TO GRAVITY. PT CONTRACTURED ON LEFT SIDE. PT HAS LIJ, WNL. PT HAS DOPAMINE RUNNING AT 3MCG. PT HAS TPN, HEPARIN, AND NS TKO INFUSING. NO NEEDS IDENTIFIED OR EXPRESSED AT THIS TIME.
[2025-06-16] MEDS ORDERED: Dose Adjust by Pharmacy XX STA (09:40)
[2025-06-16] MEDS ORDERED: TPN Consult Notification XX ONE (11:05)
--- NOTE | 2025-06-16 17:54 | NUR ---
SHIFT SUMMARY PT IS ALERT, TRACTS, NONVERBAL AT BASELINE, BUT NODS HER HEAD YES TO ALL QUESTIONS. UNABLE TO FULLY ASSESS NEURO D/T NODDING HER HEAD YES TO ALL QUESTIONS. PT ON RA, SPO2>94% T/O SHIFT. AUSCULTATED RALES DURING AM ASSESSMENT, IMPROVED T/O SHIFT. AT 1800 TURN, NOTICED WHEEZING T/O LOBES. NOTIFIED. PT IN AFIB WITH PACS T/O SHIFT, HR IN IN 70-80S FOR MAJORITY OF SHIFT, FEW EPISODES OF HR IN 50-60S BUT RECOVERED INTO 70S. PT WAS ON DOPAMINE AT 3MCG AT BEGINNING OF SHIFT, TITRATED OFF AT 1150. MAP >65 MAJORITY OF SHIFT, A FEW CYCLES OF MAP <65 D/T PRN PAIN MEDS. HEPARIN INFUSING AT 12 UNITS AND CPN INFUSING AT 105MLS/HR. KEYES CATH PATENT AND DRAINING TO GRAVITY. PER , REPLACED RECTAL TUBE, DRAINING TO GRAVITY. G TUBE WNL, ON BOWEL REST. LIJ CL, WNL. REPLACED TEGADERM, DRAWS BACK. NO FURTHER NEEDS IDENTIFIED AT THIS TIME. CALL LIGHT WITHIN REACH.
[2025-06-16] MEDS ORDERED: Ipratropium/Albuterol SulF 2.5-0.5MG/3 ML Amp INH PRN (17:55)
[2025-06-17] VITALS (86 sets, daily range): BP systolic 87–126; BP diastolic 45–84
[2025-06-17 04:31] LABS: BASOPHILS ABSOLUTE AUTO 0.01 K/mm3 (0.00-0.23); BASOPHILS PERCENT AUTO 0 % (0-2); EOSINOPHILS ABSOLUTE AUTO 0.26 K/mm3 (0.00-0.68); EOSINOPHILS PERCENT AUTO 3 % (0-6); Hematocrit 28.0 % (33.0-51.0); Hemoglobin 8.8 g/dL (11.5-16.0); IMMATURE GRAN ABSOLUTE AUTO 0.04 K/mm3 (0.00-0.10); IMMATURE GRAN PERCENT AUTO 1 % (0-1); LYMPHOCYTES ABSOLUTE AUTO 0.72 K/mm3 (0.84-5.20); LYMPHOCYTES PERCENT AUTO 8 % (21-46); MONOCYTES ABSOLUTE AUTO 0.64 K/mm3 (0.16-1.47); MONOCYTES PERCENT AUTO 7 % (4-13); Mean Corpuscular HGB Conc 31.4 g/dL (31.5-36.5); Mean Corpuscular Volume 83 fL (80-100); NEUTROPHILS ABSOLUTE AUTO 6.93 K/mm3 (1.96-9.15); NEUTROPHILS PERCENT AUTO 81 % (41-73); NRBC ABSOLUTE 0.00 K/mm3 (0.00-0.02); NRBC Auto 0.0 /100 WBC (0.0-0.2); Platelet Count 62 K/mm3 (150-400); RDW Coefficient Variation 17.1 % (11.7-14.2); RDW Standard Deviation 51.2 fL (35.1-46.3)
--- NOTE | 2025-06-17 04:52 | NUR ---
SHIFT SUMMARY PT NEURO ASSESSMENT REMAINED UNCHANGED OVERNIGHT, STILL ABLE TO FOLLOW SOME COMMANDS. ANSWERING "YES" TO ALL QUESTIONS WITH HEAD NOD, NONVERBAL AT BL. REMAINED ON ROOM AIR, SATS >92%. A-FIB, HR 60-80'S, BP SOFT BUT STABLE, REMAINED OFF DOPAMINE ALL SHIFT. PT HAD ONE EPISODE OF LEAKAGE AROUND RECTAL TUBE. CHRONIC KEYES IN PLACE, GOOD UOP NOTED. LIJ INFUSING HEPARIN AT 12U, CPN AT 105ML, AND A TKO. FULL LINEN CHANGE DONE THIS SHIFT. NO ACUTE EVENTS.
[2025-06-17] MEDS ORDERED: Clarify Drug Order XX ONE (05:10)
[2025-06-17 05:49] LABS: Anion Gap 3.0 mmol/L (3-11); Blood Urea Nitrogen 23.0 mg/dL (8-24); CO2, Blood 28.0 mmol/L (21-32); Calcium, Blood 8.0 mg/dL (8.5-10.1); Chloride, Blood 114.0 mmol/L (98-108); Creatinine, Blood 0.39 mg/dL (0.40-1.00); Glucose, Blood 129.0 mg/dL (70-99); Magnesium, Blood 1.7 mg/dL (1.6-2.4); Phosphorus, Blood 1.4 mg/dL (2.5-4.9); Potassium, Blood 4.1 mmol/L (3.5-5.5); Sodium, Blood 141.0 mmol/L (136-145)
[2025-06-17] MEDS ORDERED: TPN Consult Notification XX ONE (10:15)
[2025-06-17] MEDS ORDERED: Insulin Regular 100 UNIT/ML 10ML Vial SC SCH (12:00)
--- NOTE | 2025-06-17 12:00 | NUR ---
Spiritual care visit conducted. The patient is lying inbed and alert. She confirms that she is doing ok with her thoughts and emotions and that she would like a prayer said for her. I gladly provided prayer. She nods "yes," at the end of the prayer. I will continue to remain available to the patient and family.
[2025-06-17 20:51] LABS: Vancomycin, Trough 15.2 ug/mL (5.0-10.0)
[2025-06-18] VITALS (81 sets, daily range): BP systolic 88–136; BP diastolic 41–104
[2025-06-18 05:20] LABS: Hematocrit 26.4 % (33.0-51.0); Hemoglobin 8.4 g/dL (11.5-16.0); Platelet Count 67 K/mm3 (150-400)
[2025-06-18] MEDS ORDERED: Dose Adjust by Pharmacy XX STA ×2 (05:41→14:50)
[2025-06-18 05:46] LABS: Anion Gap 7.0 mmol/L (3-11); Blood Urea Nitrogen 20.0 mg/dL (8-24); CO2, Blood 26.0 mmol/L (21-32); Calcium, Blood 8.0 mg/dL (8.5-10.1); Chloride, Blood 113.0 mmol/L (98-108); Creatinine, Blood 0.35 mg/dL (0.40-1.00); Glucose, Blood 130.0 mg/dL (70-99); Magnesium, Blood 1.7 mg/dL (1.6-2.4); Phosphorus, Blood 1.4 mg/dL (2.5-4.9); Potassium, Blood 3.8 mmol/L (3.5-5.5); Sodium, Blood 142.0 mmol/L (136-145)
--- NOTE | 2025-06-18 06:04 | NUR ---
SHIFT SUMMARY: NO ACUTE CHANGES OVERNIGHT, VSS THROUGHOUT THE SHIFT. PT REMAINS ALERT, RESPONSIVE TO VERBAL STIMUILI, WILL TRACK VOICE IN ROOM. PT NON-VERBAL AT BASELINE, NODS HEAD YES TO ALL QUESTIONS AND WHEN ASKED TO OPEN MOUTH, NOD HEAD OR SQUEEZE HANDS WITH LEFT HAND PT IS NOT FOLLOWING DIRECTIONS. PT DOES NOT APPEAR IN ANY DISTRESS. AFIB ON MONITOR WITH HR 60-70, OCCASIONALLY WILL DROP TO 50'S BUT WILL COME BACK UP QUICKLY; BP STABLE. PT RA, LUNGS WITH RALES AND DIM BASES. PT HAS G-TUBE THAT IS CLAMPED; Q 4HR [address] ALVARADO, TOLERATED WELL. Q 12HR RESIDUAL CHECK WITH 20 MLS FROM G-TUBE THAT WAS REINSTILLED. PT RECIEVING CPN @ 83 MLS/HR. CHRONIC KEYES PATENT AND DRAINING TO GRAVITY WITH GOOD OUTPUT. CHRONIC RECTAL TUBE IN PLACE AND DRAINING TO GRAVITY WITH 50 MLS OUTPUT. PT HEMIPALEGIC ON R. SIDE WITH LEFT SIDED CONTRACTURES AND REDUCED ROM ON LEFT SIDE. PT OBSERVED MOVING LEFT ARM INDEPENDENTLY. Q 2HR REPOSITIONING WITH WEDGES. PT HAS RIJ CENTRAL LINE THAT IS INFUSING HEPARIN @ 12 UNITS/KG/HR AND NS TKO.
[2025-06-18] MEDS ORDERED: Potassium Phosphate Dibasic 15 MM in Dextrose 5% 250 ML IV ONE (06:35)
[2025-06-18] MEDS ORDERED: TPN Consult Notification XX ONE (10:20)
[2025-06-18] MEDS ORDERED: Fleet Enema132 ML PR (11:27)
--- NOTE | 2025-06-18 11:33 | NUR ---
DR ALISSA FERGUSON NOTIFIED OF PT POSITIVE URINE CULTURE. STATES SHE WILL PLACE ORDER FOR ADDITIONAL ANTIBIOTIC COVERAGE "LATER," IF INDICATED
[2025-06-18 14:24] LABS: pH Blood Venous 7.40 (7.34-7.37)
--- NOTE | 2025-06-18 14:45 | NUR ---
PT UPDATE/DR CONSULT 1300 PT BRADYCARDIC: HR DROP TO 30s, REBOUND TO 40/50s c PAUSES (LONGEST 2.5 SECONDS). INCONSISTENT BPs, MAP RANGE FROM <65 TO >65 APPROX EVERY OTHER READING. PT ABLE TO BE WOKEN c PAINFUL STIMULI & IMMEDIATELY RESUME SLEEP, NOT FOLLOWING COMMANDS. PT MENTATION NOT CHANGED FROM BEGINNING OF SHIFT. [address] GRANGER. AWARE OF PT CONDITION. MD ORDER FOR HOSPITALIST TO ASSESS FOR POSSIBLE CVA. STATES HE IS NOT CURRENTLY FOOD COUNTER ATTENDANT FOR THIS PT AND TO CONSULT PEDRO FOR FURTHER NEEDS. [address] GROVES. AWARE OF PT CONDITION. STATES SHE WILL COME ASSESS PT. MD BELIEVES AT THIS TIME, CONDITION IS CARDIAC RELATED. [address] VASQUEZ. AWARE OF PT CONDITION. STATES HE WILL ASSESS PT AT BEDSIDE. 1328 DR. GROVES TO BEDSIDE TO ASSES PT. MD ORDER HEAD CT. [address] ALL LINES/TUBE FEEDS PAUSED FOR TRANSPORT IN BED. PT VS REMAIN STABLE. PT c APPROX 50mL EMESIS, YELLOW/GREEN IN COLOR. EMESIS BEGAN BEFORE PT MOVEMENT/ HOB REPOSITIONING. [address] PT [address]OM[address] VASQUEZ AT BEDSIDE TO ASSESS PT. ORDER VBG. CAPNOGRAPHY PLACED ON PT. ALL LINES RESTARTED. 1415 CONSULT . AWARE OF PT EMESIS S/P 26mL OF TRICKLE TUBE FEEDS. ORDER TO PAUSE FEED FOR TODAY AND RESUME TOMORROW. 1445 DR. VASQUEZ UPDATE ON PT CONDITION c VBG/CT RESULTS. STATES HE BELIEVES PT REQUIRES EEG. NO NEW ORDERS AT THIS TIME.
[2025-06-18] MEDS ORDERED: Parenteral Electolytes 40 ML,Potassium Phosphate Dibasic 30 MM,Multivitamins 10 ML,ZINC... IV SCH (17:00)
--- NOTE | 2025-06-18 18:21 | NUR ---
SHIFT SUMMARY S/P PERF BOWEL. PT RESPONDS TO PAINFUL STIMULI & VERBAL STIMULI INTERMITTENTLY. PT FOLLOWS MINIMAL COMMANDS, NODS "YES" TO ALL QUESTIONS ASKED. BASELINE NONVERBAL, PT UNABLE TO USE COMMUNICATION BOARD. NPO. Q6 GLUCOSE CHECKS c NO COVERAGE INDICATED. TPN @ 73mL/HR. TRICKLE TUBE FEEDS ATTEMPTED TODAY, APPROX 2 HOURS AFTER INITIATION, PT c GREEN EMESIS. TUBE FEEDS PAUSED TODAY c PLAN TO RESUME @ 10mL/HR TOMORROW. SPO2 >90% ON RA. HR AFIB 30-70s. INCONSISTENT BPs, INFREQUENT MAP <65. SEE PREVIOUS NOTE FOR MD CONSULTS/INTERVENTIONS. KEYES TEMP DRAINING YELLOW URINE TO GRAVITY. CHRONIC RECTAL TUBE c LIQUID BROWN STOOL. Q2 TURNS c 2 PERSON ASSIST. PT ASLEEP IN BED, WILL REPORT TO NIGHT RN.
--- NOTE | 2025-06-18 20:00 | NUR ---
ASSUMPTION OF CARE CARE OF PT ASSUMED FOLLOWING BEDSIDE SHIFT REPORT FROM DAY RN. PT LYING IN BED SLEEPING, AWAKES TO VOICE, RESPONDS TO QUESTIONS WITH MOSTLY AFFIRMATIVE HEAD NODS, THOUGH IT APPEARS SHE USES MORE VIGOROUS HEAD NODS FOR "TRUE" YES. BASED ON THIS, AND INCREASING BLOOD PRESSURE, CHANGE IN FACIAL EXPRESSION FROM NEUTRAL TO FROWN, PT GIVEN ANTI-EMETIC AND PAIN MEDICATION. AFEBRILE. LEFT ARM SEVERELY CONTRACTED AND RIGHT ARM PARTIALLY CONTRACTED. BLE PARTIALLY CONTRACTED WELL. RIGHT ARM BRACE IN PLACE. A FIB 70'S WITH REPORTS OF BRADYCARDIA THAT ONE CIVIL DESIGN SPECIALIST THINKS MAY BE TREATED WITH A TRANSFER AND PACER PLACEMENT WHILE ANOTHER THINKS THAT SLEEP APNEA MAY BE THE ROOT CAUSE. BP STABLE, REPORTEDLY SOFT EARLIER TODAY. IF REMAINS BELOW MAP OF 65, PLAN IS TO GIVE A LITER OF FLUID. NO ISSUES YET. HEPARIN INFUSING AT 12 UNITS/KG/HR. PT ON RA WITH SAT > 92%. CAPNOGRAPHY IN PLACE GIVING RESULTS WNL UNTIL MALFUNCTION AND THEN REMOVED FOR NOW. PT COUGHING BUT AM UNABLE TO GET PT TO EXPECTORATE INTO SUCTION OR A TISSUE. LUNGS CLEAR AND RHONCOROUS TOWARDS CENTER. G TUBE IN PLACE TO CENTER/L UPPER AB, JUST BELOW LEFT MEDIAL BREAST. CLEAN/DRY GAUZE IN PLACE. PT HAD EMESIS EARLIER TODAY AND CONSEQUENTLY TF STOPPED FOR NOW. PT GIVEN PART OF AIDEN PACKET FOLLOWING ADMIN OF ZOFRAN AND PT RESPONDED POORLY. RECTAL TUBE IN PLACE DRAINING LIQUID BROWN STOOL. PPN INFUSING AT 73ML/HR. CHRONIC TEMP KEYES IN PLACE DRAINING PALE YELLOW URINE TO GRAVITY. Q 2 HR TURNS WILL BE ADMINISTERED. WILL REVIEW AND CONTINUE PLAN OF CARE.
[2025-06-18] MEDS ORDERED: Arginine/Glutamine/Calcium Hmb 1 Packet PT SCH (21:00)
[2025-06-18] MEDS ORDERED: Nystatin 100,000 Unit/ML Susp 5 ML UDC PO SCH (21:00)
[2025-06-19] VITALS (29 sets, daily range): BP systolic 94–132; BP diastolic 47–82
[2025-06-19 04:17] LABS: Hematocrit 26.2 % (33.0-51.0); Hemoglobin 8.2 g/dL (11.5-16.0); Platelet Count 83 K/mm3 (150-400)
[2025-06-19] MEDS ORDERED: Dose Adjust by Pharmacy XX STA (04:49)
[2025-06-19 05:52] LABS: Alanine Aminotransfer (ALT/SGP 37.0 U/L (12-78); Albumin, Blood 1.9 g/dL (3.4-5.0); Albumin/Globulin Ratio 0.5 (0.8-1.8); Anion Gap 6.0 mmol/L (3-11); Aspartate Aminotrans (AST/SGOT 26.0 U/L (12-37); Bilirubin, Total 0.2 mg/dL (0.1-1.0); Blood Urea Nitrogen 20.0 mg/dL (8-24); CO2, Blood 27.0 mmol/L (21-32); Calcium, Blood 8.4 mg/dL (8.5-10.1); Chloride, Blood 114.0 mmol/L (98-108); Creatinine, Blood 0.35 mg/dL (0.40-1.00); Globulin, Blood 3.8 g/dL (2.2-4.0); Glucose, Blood 114.0 mg/dL (70-99); Potassium, Blood 4.1 mmol/L (3.5-5.5); Sodium, Blood 143.0 mmol/L (136-145); Total Protein, Blood 5.7 g/dL (6.4-8.2)
--- NOTE | 2025-06-19 06:20 | NUR ---
SHIFT SUMMARY SEE ASSUMPTION OF CARE NOTE FOR DETAILS. NO SIGNIFICANT CHANGES FROM THEN. PT STILL NOT MOVING ARM OR COMMUNICATING WITH ANYTHING OTHER THAN AFFIRMATIVE HEAD NODS OF VARYING INTENSITY. ALERT. AFEBRILE. A FLUTTER RHYTHM WITH STABLE BP AND RATE 50-90. HEPARIN INFUSING AT 12. SAT > 92% ON RA. ONE DESAT EVENT LASTING 30 SEC. PT COUGHING BUT NOT EXPECTORATING. ACTUALLY COULD NOT GET PT TO OPEN MOUTH ALL SHIFT. 2 DOSES OF 25 MCG FENTANYL GIVEN FOR PAIN. 150 OUT OF RECTAL TUBE- BROWN LIQUID AND FORMED MIX. G TUBE IN PLACE. RESIDUAL AT END OF SHIFT WAS 30ML WATER APPEARING LIQUID. 1000ML OF URINE OUTPUT FOR SHIFT. PT DAUGHTER GIVEN UPDATE EARLY IN SHIFT. BEDSIDE SHIFT REPORT GIVEN TO DAY RN.
[2025-06-19] MEDS ORDERED: ZINC OXIDE/PETROLATUM, YELLOW 1 APPLIC/71 GM PASTE TOP PRN (12:45)
[2025-06-19] MEDS ORDERED: Sodium Phosphate 15 MM in Dextrose 5% 250 ML IV STA (12:47)
--- NOTE | 2025-06-19 13:42 | NUR ---
PALLIATIVE CARE NOTE: 0945 ROUNDED ON PT. SHE IS ASLEEP AT THIS TIME. NO S/S OF DISTRESS. RR E/U. SPOKE TO PRIMARY RN. SYMPTOMS ARE MANAGED, NO NEEDS OR CONCERNS AT THIS TIME.
--- NOTE | 2025-06-19 17:56 | NUR ---
SHIFT SUMMARY PT RESPONDS TO VERBAL/PAINFUL STIMULI. PT FOLLOWS INTERMITTENT SIMPLE COMMANDS, PT RESPONDS TO ALL YES/NO QUESTIONS c "YES" HEAD NOD. NPO. Q6 GLUCOSE CHECKS c NO COVERAGE INDICATED. TPN @ 73mL/HR. TUBE FEEDS @ 20mL/HR c Q4 50mL FLUSH; RESIDUAL APPROX 5mL. NO EMESIS THIS SHIFT. SPO2 >92% ON RA. HR AFIB 50-80s. MAP >65. TEMP KEYES DRAINING YELLOW URINE TO GRAVITY, APPROX 1000mL OUTPUT. CHRONIC RECTAL TUBE c LIQUID BROWN STOOL. COCCYX MEPILEX INTACT.Q2 TURNS c 2 PERSON ASSIST. PT ASLEEP IN BED, WILL REPORT TO ARSENIO RYAN.
[2025-06-19 20:44] LABS: Vancomycin, Trough 16.5 ug/mL (5.0-10.0)
[2025-06-20] VITALS (16 sets, daily range): BP systolic 96–134; BP diastolic 48–78
[2025-06-20 03:31] LABS: BASOPHILS ABSOLUTE AUTO 0.02 K/mm3 (0.00-0.23); BASOPHILS PERCENT AUTO 0 % (0-2); EOSINOPHILS ABSOLUTE AUTO 0.19 K/mm3 (0.00-0.68); EOSINOPHILS PERCENT AUTO 3 % (0-6); Hematocrit 24.9 % (33.0-51.0); Hemoglobin 7.8 g/dL (11.5-16.0); Mean Corpuscular HGB Conc 31.3 g/dL (31.5-36.5); Mean Corpuscular Volume 82 fL (80-100); NRBC ABSOLUTE 0.00 K/mm3 (0.00-0.02); NRBC Auto 0.0 /100 WBC (0.0-0.2); Platelet Count 98 K/mm3 (150-400); RDW Coefficient Variation 18.0 % (11.7-14.2); RDW Standard Deviation 52.3 fL (35.1-46.3)
[2025-06-20 03:40] LABS: IMMATURE GRAN ABSOLUTE AUTO 0.09 K/mm3 (0.00-0.10); IMMATURE GRAN PERCENT AUTO 1 % (0-1); LYMPHOCYTES ABSOLUTE AUTO 1.58 K/mm3 (0.84-5.20); LYMPHOCYTES PERCENT AUTO 25 % (21-46); MONOCYTES ABSOLUTE AUTO 0.65 K/mm3 (0.16-1.47); MONOCYTES PERCENT AUTO 10 % (4-13); NEUTROPHILS ABSOLUTE AUTO 3.76 K/mm3 (1.96-9.15); NEUTROPHILS PERCENT AUTO 60 % (41-73)
[2025-06-20 03:48] LABS: Albumin, Blood 1.9 g/dL (3.4-5.0); Anion Gap 7 mmol/L (3-11); Blood Urea Nitrogen 24 mg/dL (8-24); CO2, Blood 27 mmol/L (21-32); Calcium, Blood 8.4 mg/dL (8.5-10.1); Chloride, Blood 112 mmol/L (98-108); Creatinine, Blood 0.35 mg/dL (0.40-1.00); Glucose, Blood 122 mg/dL (70-99); Phosphorus, Blood 2.0 mg/dL (2.5-4.9); Potassium, Blood 4.0 mmol/L (3.5-5.5); Sodium, Blood 142 mmol/L (136-145)
--- NOTE | 2025-06-20 04:06 | NUR ---
SHIFT SUMMARY PT NEURO STATUS REMAINED UNCHANGED T/O SHIFT. PT RESTED ON AND OFF THIS SHIFT. REMAINED ON ROOM AIR, SATS > 92%. HR 60-80'S, BP STABLE W/ MAPS > 65. KEYES DRAINING GOOD AMOUNT OF URINE. RECTAL TUBE DRAINING BROWN LIQUID STOOL. TF INFUSING TO G-TUBE AT 40 ML/H, CPN STOPPED AT 0000. HAD FULL LINEN CHANGE D/T RECTAL TUBE LEAKAGE. NO ACUTE EVENTS.
[2025-06-20] MEDS ORDERED: Dose Adjust by Pharmacy XX STA ×2 (04:42→06:06)
[2025-06-20] MEDS ORDERED: Potassium Phosphate Dibasic 15 MM in Dextrose 5% 250 ML IV ONE (10:15)
--- NOTE | 2025-06-20 10:15 | NUR ---
DR ALISSA FERGUSON AWARE OF PT AM LABS. ORDER GIVEN FOR KPHOS PER EMAR R/T PHOS 2.0. ORDER TO CONTINUE TO TREND H&H, NO NEW ORDERS AT THIS TIME. ORDER GIVEN TO PLACE PICC LINE & REMOVE LIJ CENTRAL LINE.
--- NOTE | 2025-06-20 16:50 | NUR ---
MD CONSULT DR GROVES ORDER TO DISCONTINUE HEPARIN @ 2100 c 1ST DOSE OF BASELINE ELIQUIS DOSE PER EMAR.
--- NOTE | 2025-06-20 17:37 | NUR ---
PT UPDATE RESIDUAL CHECKED, 275MLS, REINSTILLED ALL 275MLS. PT NOT SHOWING EVIDENCE OF INTOLERANCE, NO VOMITING NOTED. ORDERS RECEIVED TO RECHECK RESIDUAL AT 0000. CARE CONTINUES.
--- NOTE | 2025-06-20 18:24 | NUR ---
SHIFT SUMMARY PT RESPONDS TO VERBAL/PAINFUL STIMULI. PT FOLLOWS INTERMITTENT SIMPLE COMMANDS, PT RESPONDS TO ALL YES/NO QUESTIONS c "YES" HEAD NOD. NPO. Q6 GLUCOSE CHECKS c NO COVERAGE INDICATED. TUBE FEEDS @ GOAL RATE 70mL/HR c Q4 50mL FLUSH; RESIDUAL APPROX 275mL. NO EMESIS THIS SHIFT. SPO2 >92% ON RA. HR AFIB 50-80s. MAP >65. TEMP KEYES DRAINING YELLOW URINE TO GRAVITY, APPROX 1000mL OUTPUT. CHRONIC RECTAL TUBE c LIQUID BROWN STOOL. COCCYX MEPILEX CHANGED THIS SHIFT. LIJ CENTRAL LINE REMOVED, PETROLEUM GAUZE/TEG DRESSING c MIN DRIED SEROSANG DRAINAGE. PICC TO GUALBERTO PLACED TODAY. ANTICIPATED HEPAIN D/C @ 2100 TONIGHT c BASELINE DOSE ELIQUIS. Q2 TURNS c 2 PERSON ASSIST. PT ASLEEP IN BED, WILL REPORT TO ARSENIO RYAN.
--- NOTE | 2025-06-20 20:14 | NUR ---
ASSUMPTION OF CARE: ASSUMED CARE AT START OF SHIFT (1899). REPORT RECEIVED FROM DAY SHIFT RN. PT IS DOING WELL AND RESTING IN BED. PT IS ALERT BUT NONVERBAL, ABLE WIGGLE TOES AND FINGERS BUT NO FOLLOWING COMMANDS AT THIS TIME. ON HEPARIN GTT PER EMR ORDERS. ON RA WITH SPO2 >95%. A-FIB RYTHM WITH SBP: 90-110'S MAP >65 HR: 80'S. IV: PICC IN LUE. KEYES CATH AND RECTAL TUBE IN PLACED AND DRAINING TO GRAVITY. PEG TUBE IN PLACE AND CONNECTED TO CONTINUOUS TUBE FEED @ GOAL RATE. LINES, CORDS, AND TUBES PLACED OUT OF REACH. CALL LIGHT PLACED WITHIN REACH.
[2025-06-21] VITALS: BP 110/56
--- NOTE | 2025-06-21 01:02 | NUR ---
UPDATE: CHECKED PT'S RESIDUAL VOLUME AT MIDNIGHT. RESIDUAL VOLUME: 120ML AND RESINSTILLED 120ML. PT TOLERATED RESIDUAL CHECK WITHOUT COMPLAINTS.
[2025-06-21 04:00] VITALS: BP 106/58
[2025-06-21 04:01] LABS: BASOPHILS ABSOLUTE AUTO 0.02 K/mm3 (0.00-0.23); BASOPHILS PERCENT AUTO 0 % (0-2); EOSINOPHILS ABSOLUTE AUTO 0.16 K/mm3 (0.00-0.68); EOSINOPHILS PERCENT AUTO 3 % (0-6); Hematocrit 25.8 % (33.0-51.0); Hemoglobin 8.0 g/dL (11.5-16.0); Mean Corpuscular HGB Conc 31.0 g/dL (31.5-36.5); Mean Corpuscular Volume 82 fL (80-100); NRBC ABSOLUTE 0.00 K/mm3 (0.00-0.02); NRBC Auto 0.0 /100 WBC (0.0-0.2); Platelet Count 125 K/mm3 (150-400); RDW Coefficient Variation 18.5 % (11.7-14.2); RDW Standard Deviation 53.8 fL (35.1-46.3)
[2025-06-21 04:11] LABS: IMMATURE GRAN ABSOLUTE AUTO 0.05 K/mm3 (0.00-0.10); IMMATURE GRAN PERCENT AUTO 1 % (0-1); LYMPHOCYTES ABSOLUTE AUTO 1.09 K/mm3 (0.84-5.20); LYMPHOCYTES PERCENT AUTO 19 % (21-46); MONOCYTES ABSOLUTE AUTO 0.62 K/mm3 (0.16-1.47); MONOCYTES PERCENT AUTO 11 % (4-13); NEUTROPHILS ABSOLUTE AUTO 3.76 K/mm3 (1.96-9.15); NEUTROPHILS PERCENT AUTO 66 % (41-73)
[2025-06-21 04:27] LABS: Anion Gap 7.0 mmol/L (3-11); Blood Urea Nitrogen 26.0 mg/dL (8-24); CO2, Blood 27.0 mmol/L (21-32); Calcium, Blood 8.2 mg/dL (8.5-10.1); Chloride, Blood 112.0 mmol/L (98-108); Creatinine, Blood 0.35 mg/dL (0.40-1.00); Ferritin, Serum 274.0 ng/mL (8-252); Glucose, Blood 139.0 mg/dL (70-99); Phosphorus, Blood 1.6 mg/dL (2.5-4.9); Potassium, Blood 3.6 mmol/L (3.5-5.5); Sodium, Blood 142.0 mmol/L (136-145); Total Iron Binding Capacity 157.0 ug/dL (250-450)
--- NOTE | 2025-06-21 06:23 | NUR ---
SHIFT SUMMARY: PT IS DOIGN WELL AND RESTING IN BED. PT ALERT BUT NONVERBAL, NOT FOLLOWING COMMANDS AT THIS TIME. NO ACUTE CHANGES THROUGHOUT THE SHIFT, VITAL SIGNS REMAIN STABLE. PT'S RESIDUAL VOLUME AT END OF SHIFT WAS 50ML AND REINSTILLED VOLUME WAS 50ML. IV: PICC LINE IN LUE. RECTAL TUBE AND KEYES CATHETER ARE DRAINING TO GRAVITY. LINES, CORDS, AND TUBES PLACED OUT OF REACH. CALL LIGHT PLACED WITHIN REACH.
[2025-06-21 08:00] VITALS: BP 122/69
[2025-06-21 10:05] VITALS: BP 122/69
[2025-06-21 12:00] VITALS: BP 108/51
--- NOTE | 2025-06-21 14:05 | NUR ---
SPOKE WITH ALCON ORTIZ BY PHONE TODAY. DIANA REPORTS SHE HAS AN APPOINTMENT WITH [employer] ON PT'S BEHALF, SO SHE WON'T BE VISITING TODAY. SHE ALSO STATED THAT SHE AND PT'S SON FOUND PT'S DIARY, IN WHICH PT HAD WRITTEN, "IF I BECOME DISABLED OR ILL, I WANT EVERYTHING DONE TO TRY AND KEEP ME ALIVE. I WANT CPR, AND ANY OTHER LIFE SUPPORT OR TUBES NEEDED TO KEEP ME ALIVE." DIANA THEN STATED, "MY ISN'T READY TO LET GO OF HIS MOM YET. IT'S GOING TO TAKE ANOTHER BIG EVENT TO HAPPEN BEFORE HE WILL AGREE TO HOSPICE. IN THE MEANTIME, PLEASE CONTINUE EVERY EFFORT TO KEEP HER GOING." DIANA DENIES HEARING ANYTHING YET ABOUT PT'S RECENT POSSIBLE ASPIRATION, BUT STATES IT ISN'T A SUPRISE TO HER. SHE ASKS WHAT ELSE CAN BE DONE FOR THE ASPIRATION AND ONGOING EPISODES OF VOMITING THAT SEEM TO BE RELATED TO TUBE FEED INTOLERANCE. THIS PC RN GENTLY REMINDED HER THE PATIENT'S SWALLOW ABILITY WILL LIKELY NOT IMPROVE. SHE STATES SHE KNOWS THIS, BUT WILL CONTINUE TO ENCOURAGE PT TO IMPROVE, EVEN THOUGH PT IS NON-VERBAL. UPDATED BEDSIDE RN, HOSPITALIST. WILL CONTINUE TO OFFER SUPPORT TO PATIENT AND FAMILY, WELL STAFF.
--- NOTE | 2025-06-21 16:30 | NUR ---
PATIENT TRANSFERRED FROM ICU 14, REPORT RECEIVED FROM SHELBY PEREIRA. PATIENT HAS KEYES, PATENT AND DRAINING TO GRAVITY. PICC LINE TO GUALBERTO WILLSON. VITAL HP TUBE FEED INFUSING AT 50ML/ HR THROUGH G-TUBE. PATIENT ABLE TO NOD HEAD TO YES/NO QUESTIONS, BUT NONVERBAL. DENIES ANY PAIN OR DISCOMFORT. MEPILEX TO COCCYX REMAINS C/D/I, STAGE 3 PRESSURE SORE PER REPORT, PICS ON CHART. A-FIB ON TELE AT 85 BPM, PER CHARLES FERRER TECH. ORIENTED TO ROOM AND USE OF CALL LIGHT. BED ALARM SET FOR SAFETY AND SEIZURE PADS ATTATCHED TO BED.
--- NOTE | 2025-06-21 16:44 | NUR ---
Transfer summary. PT taken to room 306 w/ this rn and student rn Jeff. Pt belongings w/ pt. Report to Caitlyn RYAN
[2025-06-21 20:25] VITALS: BP 114/63
[2025-06-22 00:22] VITALS: BP 114/53
[2025-06-22 04:14] VITALS: BP 122/62
--- NOTE | 2025-06-22 04:33 | NUR ---
SHIFT SUMMARY PATIENT IS ALERT AND ORIENTED X2. PATIENT HAS HAD NO ACUTE EVENTS THIS SHIFT. VITAL SIGNS REVIEWED. PATIENT HAS HAD CONT TUBE FEEDS INFUSING ALL SHIFT. PICC LINE RUNNING TKO. G TUBE IS PATENT AND MEDS PUSHED THROUGH WITH NO ISSUES. MINIMAL RESIDUALS. PATIENT HAS HAD BEEN TURNED Q2. PATIENT HAS HAD NO COMPLAINTS OF SOB, NAUSEA, PAIN OR VOMITTING THIS SHIFT.
[2025-06-22 08:24] VITALS: BP 116/62
[2025-06-22 09:56] LABS: Anion Gap 4.0 mmol/L (3-11); Blood Urea Nitrogen 23.0 mg/dL (8-24); CO2, Blood 31.0 mmol/L (21-32); Calcium, Blood 8.4 mg/dL (8.5-10.1); Chloride, Blood 112.0 mmol/L (98-108); Creatinine, Blood 0.36 mg/dL (0.40-1.00); Glucose, Blood 117.0 mg/dL (70-99); Phosphorus, Blood 1.8 mg/dL (2.5-4.9); Potassium, Blood 3.5 mmol/L (3.5-5.5); Sodium, Blood 143.0 mmol/L (136-145)
[2025-06-22 10:00] LABS: Hematocrit 24.4 % (33.0-51.0); Hemoglobin 7.7 g/dL (11.5-16.0); Mean Corpuscular HGB Conc 31.6 g/dL (31.5-36.5); Mean Corpuscular Volume 82 fL (80-100); NRBC ABSOLUTE 0.02 K/mm3 (0.00-0.02); NRBC Auto 0.4 /100 WBC (0.0-0.2); Platelet Count 125 K/mm3 (150-400); RDW Coefficient Variation 19.2 % (11.7-14.2); RDW Standard Deviation 55.1 fL (35.1-46.3)
[2025-06-22 10:50] LABS: BASOPHILS ABSOLUTE MAN 0.00 K/mm3 (0.00-0.23); BASOPHILS PERCENT MAN 0 % (0-2); EOSINOPHILS ABSOLUTE MAN 0.05 K/mm3 (0.00-0.68); EOSINOPHILS PERCENT MAN 1 % (0-6); LYMPHOCYTES ABSOLUTE MAN 0.81 K/mm3 (0.84-5.20); LYMPHOCYTES PERCENT MAN 15 % (21-46); MONOCYTES ABSOLUTE MAN 0.59 K/mm3 (0.16-1.47); MONOCYTES PERCENT MAN 11 % (4-13); NEUTROPHILS ABSOLUTE MAN 3.91 K/mm3 (1.96-9.15); PLASMA CELL ABSOLUTE MAN 0.05 K/mm3 (0.00-0.00); PLASMA CELLS PERCENT MAN 1 % (0-0); SEG NEUTROPHILS PERCENT MAN 72 % (41-73)
[2025-06-22 11:29] VITALS: BP 120/63
[2025-06-22] MEDS ORDERED: Potassium Phosphate Dibasic 30 MM in Dextrose 5% 500 ML IV SCH (14:00)
[2025-06-22] MEDS ORDERED: CEFEPIME HCL2 G1 IV (15:16)
[2025-06-22] MEDS ORDERED: JUVEN PACKET1 EA10 PT (15:16)
[2025-06-22] MEDS ORDERED: Metronidaz500 MG/100 IV (15:18)
[2025-06-22] MEDS ORDERED: IPRAT-ALBUT 0.5-3 ML INH (15:18)
[2025-06-22] MEDS ORDERED: NYSTATIN100000 U13 PO (15:19)
[2025-06-22] MEDS ORDERED: [UNRECOGNIZED DRUG - OTHER] UD (15:25)
[2025-06-22] MEDS ORDERED: K-Phos Origina500 MG PT (15:28)
--- NOTE | 2025-06-22 15:51 | NUR ---
REPORT GIVEN TO JACKIE RYAN AT [facility]. TRANSPORT PLAN TO [facility] AT 1630 TO ALLOW COMPLETION OF 1600 DOSE OF ANTIBIOTICS. PERSONAL BELONGINGS WITH PT. PICC LINE IN PLACE. CHRONIC KEYES IN PLACE. WOUND CARE PROVIDED TO PT COCCYX ORDERED. ONE LOOSE BM THIS SHIFT.
--- NOTE | 2025-06-22 16:43 | NUR ---
SPOKE WITH PT'S José [email or web address] THIS AFTERNOON. SHE STATES SHE IS AWARE THE PATIENT IS RETURNING TO [facility]. WE DISCUSSED PT'S PROGNOSIS AGAIN, AND Mj ORTIZ VERBALIZES CONCERN WELL. SHE STATES SHE IS NOTICING CHANGES IN PATIENT'S OVERALL CONDITION, BUT STILL BELIEVES HER (PT'S SON) IS NOT READY TO FACE IT UNFORTUNATELY. THIS RN ENCOURAGED DIANA TO CONTINUE ADVOCATING FOR THE PATIENT'S NEEDS, AND TO REQUEST HOSPICE EVAL IF HER CONDITION WORSENS. SHE V/U.
--- NOTE | 2025-06-22 17:20 | NUR ---
PT OPENS EYES TO VERBAL STIMULI. SHE NODS YES TO EVERY QUESTION SHE IS ASKED. PT REPOSTIONED Q2. PAIN MEDICATED PER EMAR. KEYES IN PLACE FOR RETENTION. PLAN IS TO DISCHARGE TO [facility]. NO ACUTE NEEDS AT THIS TIME.
[2025-06-22 17:30] VITALS: BP 122/65
--- NOTE | 2025-06-22 19:07 | NUR ---
CURRENTLY AWAITING TRANSPORT. PT DISCHARGED. PER TRANSPORT SERVICE, RUNNING LATE. LAST UPDATED AT 1800 WITH [employer] WORKER TIME BETWEEN [id number]. WILL REPORT TO NOC RN. PT TUBE FEEDINGS STOPPED APPROX 1600 DUE TO EXPECTED TRANSPORT TIME AND THIS RN CONCERN FOR ASPIRATION. NO ACUTE CONCERNS THIS SHIFT. PT IS AT HER BASELINE AND NON VERBAL. BEDREST WITH KEYES CATH IN PLACE.
== END 2025-06-22 19:48 | DRG 871 ==
LOC: ER 21:35 → MEDS 06-13 00:14 → ICUE 06-13 00:14 → MEDS 06-21 16:10 → ENPENDDIS 06-22 18:51 → MEDS 06-22 19:48
PROVIDERS: Emergency Medicine; Internal Medicine; Internal Medicine Hematology; Nurse Practitioner Acute Care; Student in an Organized Health Care Education/Training Program; Surgery; ADMIT Student in an Organized Health Care Education/Training Program
PROC: 0T9B70Z Drainage of Bladder with Drainage Device, Via Natural or Artificial Opening (ICD-10-PCS; 2025-06-12)
PROC: 3E0336Z Introduction of Nutritional Substance into Peripheral Vein, Percutaneous Approach (ICD-10-PCS; principal; 2025-06-13)
PROC: 4A033R1 Measurement of Arterial Saturation, Peripheral, Percutaneous Approach (ICD-10-PCS; 2025-06-13)
PROC: 0D9P70Z Drainage of Rectum with Drainage Device, Via Natural or Artificial Opening (ICD-10-PCS; 2025-06-15)
PROC: 5A09357 Assistance with Respiratory Ventilation, Less than 24 Consecutive Hours, Continuous Positive Airway Pressure (ICD-10-PCS; 2025-06-15)
PROC: 02HV33Z Insertion of Infusion Device into Superior Vena Cava, Percutaneous Approach (ICD-10-PCS; 2025-06-20)
PROC: B548ZZA Ultrasonography of Superior Vena Cava, Guidance (ICD-10-PCS; 2025-06-20)
DX: A41.9 Sepsis, unspecified organism (principal); G92.8 Other toxic encephalopathy; L89.153 Pressure ulcer of sacral region, stage 3; K63.1 Perforation of intestine (nontraumatic); R65.21 Severe sepsis with septic shock; J96.01 Acute respiratory failure with hypoxia; E87.20 Acidosis, unspecified; E87.0 Hyperosmolality and hypernatremia; E87.1 Hypo-osmolality and hyponatremia; D69.6 Thrombocytopenia, unspecified; I49.5 Sick sinus syndrome; R74.01 Elevation of levels of liver transaminase levels; G40.909 Epilepsy, unspecified, not intractable, without status epilepticus; E11.622 Type 2 diabetes mellitus with other skin ulcer; E87.8 Other disorders of electrolyte and fluid balance, not elsewhere classified; R11.10 Vomiting, unspecified; I48.0 Paroxysmal atrial fibrillation; E66.9 Obesity, unspecified; K63.89 Other specified diseases of intestine; D64.9 Anemia, unspecified; M79.9 Soft tissue disorder, unspecified; Z93.1 Gastrostomy status; Z79.899 Other long term (current) drug therapy; Z79.01 Long term (current) use of anticoagulants; Z79.85 Long-term (current) use of injectable non-insulin antidiabetic drugs; Z79.891 Long term (current) use of opiate analgesic; Z88.8 Allergy status to other drugs, medicaments and biological substances; I69.920 Aphasia following unspecified cerebrovascular disease; Z86.69 Personal history of other diseases of the nervous system and sense organs; Z85.048 Personal history of other malignant neoplasm of rectum, rectosigmoid junction, and anus; Z90.49 Acquired absence of other specified parts of digestive tract
CPT/HCPCS: 36415; 36556; 36569; 36593; 36600; 51702; 70450; 71045; 71260; 74177; 80048; 80053; 80069; 80177; 80202; 81001; 82140; 82248; 82728; 82803; 82947; 83540; 83550; 83605; 83735; 83880; 83930; 83935; 84100; 84132; 84295; 84300; 84443; 84478; 84484; 85014; 85018; 85025; 85049; 85520; 85610; 85730; 86850; 86900; 86901; 87040; 87077; 87086; 87186; 87507; 87637; 93005; 93010; 93306; 94640; 94660; 94664; 94760; 94762; 96374; 99285-25; A9270; C1751; J0461; J0692; J0696; J1265; J1644; J1815; J1953; J2405; J2765; J3010; J3373; J3411; J3475; J7040; J7050; J7060; J7070; J7120; Q9967

== ENCOUNTER 2025-06-26 10:48 | Emergency (ER) | payer MEDICARE, OTHER ==
[~2025-06-26] VITALS: Ht 170.2 cm; Wt 104.3 kg
[~2025-06-26 10:48] MED LIST changes: +CEFEPIME HCL2 G1 IV; +FAMO20 PT; +IPRAT-ALBUT 0.5-3 ML INH; +JUVEN PACKET1 EA10 PT; +K-Phos Origina500 MG PT; +Metronidaz500 MG/100 IV; +NYSTATIN100000 U13 PO; +[UNRECOGNIZED DRUG - OTHER] UD
[2025-06-26 11:36] LABS: BASOPHILS ABSOLUTE AUTO 0.02 K/mm3 (0.00-0.23); BASOPHILS PERCENT AUTO 0 % (0-2); EOSINOPHILS ABSOLUTE AUTO 0.07 K/mm3 (0.00-0.68); EOSINOPHILS PERCENT AUTO 1 % (0-6); Hematocrit 27.9 % (33.0-51.0); Hemoglobin 8.9 g/dL (11.5-16.0); IMMATURE GRAN ABSOLUTE AUTO 0.02 K/mm3 (0.00-0.10); IMMATURE GRAN PERCENT AUTO 0 % (0-1); LYMPHOCYTES ABSOLUTE AUTO 1.10 K/mm3 (0.84-5.20); LYMPHOCYTES PERCENT AUTO 13 % (21-46); MONOCYTES ABSOLUTE AUTO 0.89 K/mm3 (0.16-1.47); MONOCYTES PERCENT AUTO 11 % (4-13); Mean Corpuscular HGB Conc 31.9 g/dL (31.5-36.5); Mean Corpuscular Volume 82 fL (80-100); NEUTROPHILS ABSOLUTE AUTO 6.32 K/mm3 (1.96-9.15); NEUTROPHILS PERCENT AUTO 75 % (41-73); NRBC ABSOLUTE 0.00 K/mm3 (0.00-0.02); NRBC Auto 0.0 /100 WBC (0.0-0.2); Platelet Count 179 K/mm3 (150-400); RDW Coefficient Variation 19.9 % (11.7-14.2); RDW Standard Deviation 59.1 fL (35.1-46.3)
[2025-06-26 12:12] LABS: Alanine Aminotransfer (ALT/SGP 19 U/L (12-78); Albumin, Blood 2.3 g/dL (3.4-5.0); Albumin/Globulin Ratio 0.5 (0.8-1.8); Anion Gap Unable to Calculate mmol/L (3-11); Aspartate Aminotrans (AST/SGOT 19 U/L (12-37); Bilirubin, Total 0.5 mg/dL (0.1-1.0); Blood Urea Nitrogen 16 mg/dL (8-24); CO2, Blood 36 mmol/L (21-32); Calcium, Blood 8.2 mg/dL (8.5-10.1); Chloride, Blood 108 mmol/L (98-108); Creatinine, Blood 0.34 mg/dL (0.40-1.00); Globulin, Blood 4.7 g/dL (2.2-4.0); Glucose, Blood 136 mg/dL (70-99); Potassium, Blood 3.4 mmol/L (3.5-5.5); Sodium, Blood 140 mmol/L (136-145); Total Protein, Blood 7.0 g/dL (6.4-8.2)
== END 2025-06-26 16:07 | disposition home or self-care (01) ==
LOC: ER 10:48
PROVIDERS: Student in an Organized Health Care Education/Training Program
DX: K94.23 Gastrostomy malfunction (principal); E03.9 Hypothyroidism, unspecified; Z79.899 Other long term (current) drug therapy; Z88.8 Allergy status to other drugs, medicaments and biological substances
CPT/HCPCS: 43762; 49465; 71045; 80053; 85025; 93005; 93010; 99284-25; Q9963

== ENCOUNTER 2025-07-06 03:23 | Emergency (ER) | payer MEDICARE, OTHER ==
[~2025-07-06] VITALS: Ht 162.6 cm; Wt 77.1 kg
== END 2025-07-06 05:25 | disposition home or self-care (01) ==
LOC: ER 03:23
DX: K94.23 Gastrostomy malfunction (principal); Z86.73 Personal history of transient ischemic attack (TIA), and cerebral infarction without residual deficits; Z79.899 Other long term (current) drug therapy; Z88.8 Allergy status to other drugs, medicaments and biological substances
CPT/HCPCS: 99283

== ENCOUNTER 2025-07-08 09:34 | Emergency (ER) | payer MEDICARE, OTHER ==
[~2025-07-08] VITALS: Ht 162.6 cm; Wt 90.7 kg
== END 2025-07-08 13:40 | disposition home or self-care (01) ==
LOC: ER 09:34
DX: K94.23 Gastrostomy malfunction (principal); Z79.01 Long term (current) use of anticoagulants; Z79.899 Other long term (current) drug therapy
CPT/HCPCS: 43762; 99283-25

== ENCOUNTER 2025-07-25 12:15 | Emergency (ER) | payer MEDICARE, OTHER ==
[~2025-07-25] VITALS: Ht 165.1 cm; Wt 113.4 kg
== END 2025-07-25 19:19 | disposition home or self-care (01) ==
LOC: ER 12:15
DX: K94.23 Gastrostomy malfunction (principal); I50.9 Heart failure, unspecified; E03.9 Hypothyroidism, unspecified; I48.91 Unspecified atrial fibrillation; Z86.73 Personal history of transient ischemic attack (TIA), and cerebral infarction without residual deficits; Z88.8 Allergy status to other drugs, medicaments and biological substances; Z79.01 Long term (current) use of anticoagulants; Z79.899 Other long term (current) drug therapy
CPT/HCPCS: 49465; Q9963